=== PATIENT | male | born 1965 | race Caucasian/White ===

== ENCOUNTER 2017-06-21 16:05 | Inpatient (IN) | END 2017-09-08 17:37 | disposition home health service (06) | DRG 472 ==

== ENCOUNTER 2018-09-17 16:30 | Inpatient (IN) | payer OTHER ==
[~2018-09-17] VITALS: Ht 182.9 cm; Wt 102.4 kg
[~2018-09-17 16:30] MED LIST: FER325 PO; FURO-110 PO; HYDR-3601 PO; SPIR50TA PO; Vancomycin Oral Syringe PO
[2018-09-17] MEDS ORDERED: ONDANSETRON 4 MG INJ IV PRN (19:30)
[2018-09-17] MEDS ORDERED: ALBUTEROL 0.083% (NEB) 2.5 MG/3 ML AMP NEB PRN (19:30)
[2018-09-17] MEDS ORDERED: HYDROCODONE/APAP (5/325) TAB PO PRN (19:30)
[2018-09-17] MEDS ORDERED: MAGNESIUM HYDROXIDE 30ML CUP PO PRN (19:30)
[2018-09-17] MEDS ORDERED: NACL 0.9% 3 ML SYG IV SCH (19:30)
[2018-09-17] MEDS ORDERED: DOCUSATE SODIUM 100 MG CAP PO PRN (19:30)
[2018-09-17 19:38] VITALS: BP 138/88; PULSE 71; RESP 18
[2018-09-17] MEDS: ALBUTEROL 0.083% (NEB) 2.5 MG/3 ML AMP NEB SCH (20:00)
[2018-09-17 20:05] VITALS: Ht 182.9 cm; Wt 102.4 kg
[2018-09-17] MEDS ORDERED: morphine 2 MG INJ IV STA (20:41)
[2018-09-17] MEDS: METHYLPREDNISOLONE 40 MG INJ IV SCH (22:00)
[2018-09-17] MEDS: FERROUS SULFATE (EC) 325 MG TAB PO SCH (22:00)
[2018-09-17] MEDS: AZITHROMYCIN 500MG/NS (PMX) 250 ML IV SCH (22:01)
--- NOTE | 2018-09-17 23:03 | HP ---
Date/Time of Note Date/Time of Note DATE: 09/17/18 TIME: 23:03 Assessment/Plan VTE Prophylaxis SCD applied (from Ns): Yes Pharmacological prophylaxis: NA/contraindicated Pharm contraindication: low risk/ambulating Assessment/Plan Hospital Course This is a 53-year-old male [facility] for: #1 severe sepsis: Secondary to pneumonia. Patient's initial lactate transfer facility was 3.1. We will repeat a lactate at the current time. Ceftriaxone and azithromycin. Will trend lactate levels. Will check with the transfer facility regarding culture results. #2 community-acquired pneumonia: Ceftriaxone and azithromycin, await culture results #3 history of cervical myelopathy S/p Posterior Cervical Decompression and Fusion (PCDF) C3-[address] Smith, neurosurgery on 08/11. Pain management the current time with patient's Roxicodone and Flexeril #4 iron deficiency anemia: Check CBC, monitor closely #5 liver cirrhosis with hepatitis C.: Resume Lasix and spironolactone. follow up outpatient GI for further work up and treatment of hep c #6 depression: Continue sertraline #7 left shoulder Posttraumatic impingement syndrome: Continue pain management with Roxicodone #8 obesity: We will check hemoglobin A 1C, lipid panel, TSH #9 DVT GI prophylaxis: SCDs, no GI prophylaxis indicated Further treatment strategy will be implemented as per the clinical course Result Diagram: 09/17/18203609/17/182036 Results 24hrs Laboratory Tests Test 09/17/18 20:37 White Blood Count 15.1 #H Red Blood Count 3.93 #L Hemoglobin 11.1 L Hematocrit 34.3 L Mean Corpuscular Volume 87.3 Mean Corpuscular Hemoglobin 28.2 L Mean Corpuscular Hemoglobin Concent 32.4 Red Cell Distribution Width 16.8 #H Platelet Count 192 # Mean Platelet Volume 10.1 Immature Granulocytes % 0.500 H Neutrophils % 84.7 H Lymphocytes % 8.3 L Monocytes % 6.4 Eosinophils % 0.0 Basophils % 0.1 Nucleated Red Blood Cells % 0.0 Immature Granulocytes # 0.070 H Neutrophils # 12.8 H Lymphocytes # 1.3 Monocytes # 1.0 H Eosinophils # 0.0 Basophils # 0.0 Nucleated Red Blood Cells # 0.0 Sodium Level 140 Potassium Level 4.8 Chloride Level 109 Carbon Dioxide Level 21 Anion Gap 10 Blood Urea Nitrogen 16 Creatinine 0.86 Est Glomerular Filtrat Rate mL/min > 60 Glucose Level 160 Calcium Level 8.7 Magnesium Level 1.8 Total Bilirubin 0.0 L Direct Bilirubin 0.00 Indirect Bilirubin 0.0 Aspartate Amino Transf (AST/SGOT) 47 H Alanine Aminotransferase (ALT/SGPT) 26 Alkaline Phosphatase 132 H Total Protein 7.2 Albumin 3.2 L Globulin 4.00 H Albumin/Globulin Ratio 0.80 HPI/ROS Admit Date/Time Admit Date/Time Sep 17, 2018 at 18:40 Hx of Present Illness Chief complaint shortness of breath This is a 53-year-old male who presented to the ER at [facility] with complaints of cough times 7 days. There he reported that his cough is associated with yellowish/greenish sputum production. He also reported having a fever chills and left-sided chest pain. He was found to have a temperature of 101 and a elevated lactate of 3.1. Chest x-ray was consistent with a left-sided pneumonia. Patient also had been reporting history of asthma and has been wheezing. Vitals on presentation at the transfer facility showed temperature 100.9 BP 127/71/pulse 125/respirations 23/SPO2 96% on room air Pertinent laboratory findings please see transfer Dr. barrios for full details: CBC White blood cell 5.2 hemoglobin 11.8/hematocrit 36.1/platelets 155 Sodium 129 potassium 3.0 chloride 96 CO2 20 BUN 8 creatinine 1.04 ALT 23 AST 56 next Troponin less than 0.02 Chest x-ray: Left-sided infiltrate Allergies: Opioids, opium, acetaminophen, latex ROS Const: As per HPI Eyes : No pain discharge or redness or change in visual acuity ENT: No pain, sore throat, congestion, congestion, dysphagia or discharge Respiratory: As per HPI Cardiovascular: No chest pain, palpitation, PND, or edema GI : no change in appetite, abdominal pain, nausea, vomiting, diarrhea, constipation, or change in the color his stool Genitourinary: No dysuria, hematuria, flank pain , discharge or CVA tenderness Musculoskeletal: No joint pain, back pain, neck pain, restricted range of motion in neck or joints Skin: No rash, bruising or hives Neuro: No headache, dizziness, syncope, seizure, focal weakness Endocrine: No polyuria, polydipsia, temperature intolerance Psych: No hallucination, depression, anxiety or suicidal ideation PMH/Family/Social Past Medical History Cervical myelopathy S/p Posterior Cervical Decompression and Fusion (PCDF) C3-[address] Smith, neurosurgery on 08/11. Right BKA Iron deficiency anemia Liver cirrhosis with hepatitis C. Depression. Left shoulder Posttraumatic impingement syndrome Psychiatric disorder. Anemia. Medications Current Medications Ferrous Sulfate (Ferrous Sulfate (Ec)) 325 mg BID PO Last administered on 09/17/18at 22:00; Admin Dose 325 MG; Start 09/17/18 at 21:00 Furosemide (Lasix) 20 mg DAILY PO ; Start 09/18/18 at 09:00 Spironolactone (Aldactone) 50 mg DAILY PO ; Start 09/18/18 at 09:00 IV Flush (NS 3 ml) 3 ml PER PROTOCOL IV ; Start 09/17/18 at 19:30 Ondansetron HCl (Zofran Inj) 4 mg Q6H PRN IV NAUSEA/VOMITING; Start 09/17/18 at 19:30 Docusate Sodium (Colace) 100 mg Q12H PRN PO .CONSTIPATION; Start 09/17/18 at 19:30 Magnesium Hydroxide (Milk Of Mag) 30 ml DAILY PRN PO .CONSTIPATION; Start 09/17/18 at 19:30 Pantoprazole (Protonix Tab) 40 mg DAILY@06 PO ; Start 09/18/18 at 06:00 Enoxaparin Sodium (Lovenox) 40 mg DAILY SC ; Start 09/18/18 at 09:00 Ceftriaxone Sodium 50 ml @ 100 mls/hr Q24H IVPB ; Start 09/17/18 at 19:30 Azithromycin 250 ml @ 250 mls/hr Q24H IV Last administered on 09/17/18at 22:01; Admin Dose 250 MLS/HR; Start 09/17/18 at 21:00 Albuterol (Proventil 0.083% (Neb)) 2.5 mg Q6HWA RESP THERAPY NEB ; Start 09/17/18 at 20:00 Albuterol (Proventil 0.083% (Neb)) 2.5 mg Q2H RESP THERAPY PRN NEB SHORTNESS OF BREATH; Start 09/17/18 at 19:30 Methylprednisolone Sodium Succinate (Solu-Medrol) 40 mg Q8 IV Last administered on 09/17/18at 22:00; Admin Dose 40 MG; Start 09/17/18 at 22:00 Coded Allergies: acetaminophen (Verified Allergy, Intermediate, 06/20/17) latex (Verified Allergy, Intermediate, 06/20/17) Opium (Verified Allergy, Unknown, 01/10/10) Uncoded Allergies: OPIATES (Allergy, Intermediate, RASH; TAKES MS CONTIN AT HOME, 06/20/17) (PER RN) Past Surgical History S/p Posterior Cervical Decompression and Fusion (PCDF) C3-[address] Smith, neurosurgery on 08/11/2016, right bka Past Surgical Hx: other Family History Significant Family History: no pertinent family hx Social History Smoking Status: Former smoker Exam/Review of Systems Vital Signs Vitals Vital Signs Date Temp Pulse Resp B/P (MAP) Pulse Ox O2 O2 Flow FiO2 Time Delivery Rate 09/17/18 98.7 71 18 138/88 98 19:38 (105) Exam Exam General: Patient is currently lying in bed he does not appear to be in any acute distress, he is watching TV HEENT: Atraumatic, normocephalic. The pupils are equal, round and reactive. Extraocular motor are intact Neck: Supple with full range of motion. No rigidity or meningismus Chest: Nontender Lungs: Coarse breath sounds bilaterally, nonlabored breathing Heart: Normal S1-S2, Regular rhythm and rate. No murmur, S3, or S4 Abdomen: Soft , nontender, nondistended , bowel sounds are present. No guarding no rebound tenderness , No masses or organomegaly. No costovertebral temporal angle mass Extremities: Right BKA Neurologic: Normal mental status, speech normal, cranial nerves II through XII are intact, motor and sensory are intact, Skin: Posterior cervical surgical scar CA RODRIGUEZ Sep 17, 2018 23:03
[2018-09-17] MEDS ORDERED: MAGNESIUM SULFATE 1 GM/D5W 100 ML IVPB ONE (23:30)
[2018-09-17] MEDS: CEFTRIAXONE 1 GM/50 ML (PMX) 50 ML IVPB SCH (23:58)
[2018-09-18] MEDS: oxyCODONE 5 MG TAB PO SCH ×2 (00:44→09:39)
[2018-09-18] MEDS: CYCLOBENZAPRINE 10 MG TAB PO SCH ×3 (00:44→21:12)
[2018-09-18 01:10] VITALS: BP 152/89; PULSE 72; RESP 18
[2018-09-18] MEDS ORDERED: SERT25TA83 PO (03:42)
[2018-09-18] MEDS ORDERED: NAPR-688 PO (03:42)
[2018-09-18] MEDS ORDERED: FOLI-49 PO (03:42)
[2018-09-18] MEDS ORDERED: METO-429 PO (03:42)
[2018-09-18] MEDS: PANTOPRAZOLE (EC) 40 MG TAB PO SCH (05:58)
[2018-09-18] MEDS: METHYLPREDNISOLONE 40 MG INJ IV SCH ×3 (05:58→21:12)
[2018-09-18 07:25] VITALS: BP 159/93; PULSE 70; RESP 16
[2018-09-18] MEDS: ALBUTEROL 0.083% (NEB) 2.5 MG/3 ML AMP NEB SCH ×3 (07:32→21:09)
[2018-09-18] MEDS: METOPROLOL 50 MG TAB PO SCH ×2 (09:37→21:13)
[2018-09-18] MEDS: FOLIC ACID 1 MG TAB PO SCH (09:37)
[2018-09-18] MEDS: SPIRONOLACTONE 50 MG TAB PO SCH (09:38)
[2018-09-18] MEDS: FUROSEMIDE 20 MG TAB PO SCH (09:38)
[2018-09-18] MEDS: FERROUS SULFATE (EC) 325 MG TAB PO SCH ×2 (09:38→21:13)
[2018-09-18] MEDS: ENOXAPARIN 40 MG/0.4 ML SYG SC SCH (09:44)
[2018-09-18] MEDS: SERTRALINE 50 MG TAB PO SCH (10:07)
--- NOTE | 2018-09-18 10:39 | PN ---
Date/Time of Note Date/Time of Note DATE: 09/18/18 TIME: 10:26 Assessment/Plan VTE Prophylaxis Risk score (from Nsg)>0 risk: 5 SCD applied (from Nsg): Yes Pharmacological prophylaxis: LMWH Lines/Catheters IV Catheter Type (from Nrsg): Peripheral IV Assessment/Plan Hospital Course S: feels better, having some pain in R side from coughing O: General: A&O x3, answering questions appropriately HEENT: NC/ AT. PERRL. EOM intact Neck: supple CVS: S1, S2, RRR. no murmurs. no pain on chest wall palpation Lungs: wheezing R >>L, mildly diminished, still requiring 2L nc Abd: soft, nontender, +BS Ext: R BKA, no edema skin: no rashes assessment and plan: Sepsis secondary to left-sided pneumonia Chronic pain History of cervical myelopathy status post surgical decompression and fusion July 2018 Chronic hepatitis C with liver cirrhosis, status untreated Chronic debility and wheelchair bound Chronic iron deficiency History of C. difficile colitis Chronic iron deficiency anemia Low TSH in the setting of sepsis Plan: 1. Continue current antibiotics 2. Wean off oxygen and continue breathing treatments 3. Patient has in-home support services and has caregiver taking care of him an d so we will plan for possible discharge tomorrow to complete antibiotic therapy at home, once weaned off o2 4. Patient recommended to follow-up with GI outpatient for hepatitis C evaluation and possible treatment Prophylaxis: Lovenox Result Diagram: 09/18/18 0451 09/18/18 0451 Results 24hrs Laboratory Tests Test 09/17/18 20:37 09/18/18 04:51 09/18/18 09:18 White Blood Count 15.1 #H 15.5 H Red Blood Count 3.93 #L 3.67 L Hemoglobin 11.1 L 10.5 L Hematocrit 34.3 L 32.2 L Mean Corpuscular Volume 87.3 87.7 Mean Corpuscular Hemoglobin 28.2 L 28.6 L Mean Corpuscular Hemoglobin Concent 32.4 32.6 Red Cell Distribution Width 16.8 #H 16.9 H Platelet Count 192 # 179 Mean Platelet Volume 10.1 10.6 H Immature Granulocytes % 0.500 H 0.400 Neutrophils % 84.7 H 86.4 H Lymphocytes % 8.3 L 8.7 L Monocytes % 6.4 4.4 Eosinophils % 0.0 0.0 Basophils % 0.1 0.1 Nucleated Red Blood Cells % 0.0 0.0 Immature Granulocytes # 0.070 H 0.060 H Neutrophils # 12.8 H 13.4 H Lymphocytes # 1.3 1.4 Monocytes # 1.0 H 0.7 Eosinophils # 0.0 0.0 Basophils # 0.0 0.0 Nucleated Red Blood Cells # 0.0 0.0 Sodium Level 140 139 Potassium Level 4.8 3.9 Chloride Level 109 109 Carbon Dioxide Level 21 20 L Anion Gap 10 10 Blood Urea Nitrogen 16 18 Creatinine 0.86 0.76 Est Glomerular Filtrat Rate mL/min > 60 > 60 Glucose Level 160 154 Calcium Level 8.7 8.3 L Magnesium Level 1.8 2.1 Total Bilirubin 0.0 L 0.1 L Direct Bilirubin 0.00 0.00 Indirect Bilirubin 0.0 0.1 Aspartate Amino Transf (AST/SGOT) 47 H 42 Alanine Aminotransferase (ALT/SGPT) 26 22 Alkaline Phosphatase 132 H 114 Total Protein 7.2 6.5 Albumin 3.2 L 2.9 L Globulin 4.00 H 3.60 H Albumin/Globulin Ratio 0.80 0.80 Triglycerides Level 62 Cholesterol Level 119 LDL Cholesterol, Calculated 66 HDL Cholesterol 41 Cholesterol/HDL Ratio 2.9 Thyroid Stimulating Hormone (TSH) 0.161 L Lactic Acid Level 1.2 Exam/Review of Systems Exam Vitals Vital Signs Date Temp Pulse Resp B/P (MAP) Pulse Ox O2 O2 Flow FiO2 Time Delivery Rate 09/18/18 2.0 07:35 09/18/18 72 18 96 Nasal 07:34 Cannula 09/18/18 98.1 159/93 07:25 (115) Intake and Output 09/17/18 09/17/18 09/18/18 1515:00 23:00 07:00 IntakeIntake Total 900 ml BalanceBalance 900 ml Results Results 24hrs Laboratory Tests Test 09/17/18 20:37 09/18/18 04:51 09/18/18 09:18 White Blood Count 15.1 #H 15.5 H Red Blood Count 3.93 #L 3.67 L Hemoglobin 11.1 L 10.5 L Hematocrit 34.3 L 32.2 L Mean Corpuscular Volume 87.3 87.7 Mean Corpuscular Hemoglobin 28.2 L 28.6 L Mean Corpuscular Hemoglobin Concent 32.4 32.6 Red Cell Distribution Width 16.8 #H 16.9 H Platelet Count 192 # 179 Mean Platelet Volume 10.1 10.6 H Immature Granulocytes % 0.500 H 0.400 Neutrophils % 84.7 H 86.4 H Lymphocytes % 8.3 L 8.7 L Monocytes % 6.4 4.4 Eosinophils % 0.0 0.0 Basophils % 0.1 0.1 Nucleated Red Blood Cells % 0.0 0.0 Immature Granulocytes # 0.070 H 0.060 H Neutrophils # 12.8 H 13.4 H Lymphocytes # 1.3 1.4 Monocytes # 1.0 H 0.7 Eosinophils # 0.0 0.0 Basophils # 0.0 0.0 Nucleated Red Blood Cells # 0.0 0.0 Sodium Level 140 139 Potassium Level 4.8 3.9 Chloride Level 109 109 Carbon Dioxide Level 21 20 L Anion Gap 10 10 Blood Urea Nitrogen 16 18 Creatinine 0.86 0.76 Est Glomerular Filtrat Rate mL/min > 60 > 60 Glucose Level 160 154 Calcium Level 8.7 8.3 L Magnesium Level 1.8 2.1 Total Bilirubin 0.0 L 0.1 L Direct Bilirubin 0.00 0.00 Indirect Bilirubin 0.0 0.1 Aspartate Amino Transf (AST/SGOT) 47 H 42 Alanine Aminotransferase (ALT/SGPT) 26 22 Alkaline Phosphatase 132 H 114 Total Protein 7.2 6.5 Albumin 3.2 L 2.9 L Globulin 4.00 H 3.60 H Albumin/Globulin Ratio 0.80 0.80 Triglycerides Level 62 Cholesterol Level 119 LDL Cholesterol, Calculated 66 HDL Cholesterol 41 Cholesterol/HDL Ratio 2.9 Thyroid Stimulating Hormone (TSH) 0.161 L Lactic Acid Level 1.2 Medications Medication Current Medications Ferrous Sulfate (Ferrous Sulfate (Ec)) 325 mg BID PO Last administered on 09/18/18at 09:38; Admin Dose 325 MG; Start 09/17/18 at 21:00 Furosemide (Lasix) 20 mg DAILY PO Last administered on 09/18/18at 09:38; Admin Dose 20 MG; Start 09/18/18 at 09:00 Spironolactone (Aldactone) 50 mg DAILY PO Last administered on 09/18/18 09:38; Admin Dose 50 MG; Start 09/18/18 at 09:00 IV Flush (NS 3 ml) 3 ml PER PROTOCOL IV ; Start 09/17/18 at 19:30 Ondansetron HCl (Zofran Inj) 4 mg Q6H PRN IV NAUSEA/VOMITING; Start 09/17/18 at 19:30 Docusate Sodium (Colace) 100 mg Q12H PRN PO .CONSTIPATION; Start 09/17/18 at 19:30 Magnesium Hydroxide (Milk Of Mag) 30 ml DAILY PRN PO .CONSTIPATION; Start 09/17/18 at 19:30 Pantoprazole (Protonix Tab) 40 mg DAILY@06 PO Last administered on 09/18/18 05:58; Admin Dose 40 MG; Start 09/18/18 at 06:00 Enoxaparin Sodium (Lovenox) 40 mg DAILY SC Last administered on 09/18/18 09:44; Admin Dose 40 MG; Start 09/18/18 at 09:00 Ceftriaxone Sodium 50 ml @ 100 mls/hr Q24H IVPB Last administered on 09/17/18 23:58; Admin Dose 100 MLS/HR; Start 09/17/18 at 19:30 Azithromycin 250 ml @ 250 mls/hr Q24H IV Last administered on 09/17/18 22:01; Admin Dose 250 MLS/HR; Start 09/17/18 at 21:00 Albuterol (Proventil 0.083% (Neb)) 2.5 mg Q6HWA RESP THERAPY NEB Last administered on 09/18/18 07:32; Admin Dose 2.5 MG; Start 09/17/18 at 20:00 Albuterol (Proventil 0.083% (Neb)) 2.5 mg Q2H RESP THERAPY PRN NEB SHORTNESS OF BREATH; Start 09/17/18 at 19:30 Methylprednisolone Sodium Succinate (Solu-Medrol) 40 mg Q8 IV Last administered on 09/18/18 05:58; Admin Dose 40 MG; Start 09/17/18 at 22:00 Oxycodone HCl (Roxicodone) 10 mg BID PO Last administered on 09/18/18 09:39; Admin Dose 10 MG; Start 09/18/18 at 00:00 Cyclobenzaprine HCl (Flexeril) 10 mg BID PO Last administered on 09/18/18 0 9:37; Admin Dose 10 MG; Start 09/18/18 at 00:00 Folic Acid (Folic Acid) 1 mg DAILY PO Last administered on 09/18/18 09:37; Admin Dose 1 MG; Start 09/18/18 at 09:00 Metoprolol Tartrate (Lopressor) 50 mg BID PO Last administered on 09/18/18 09:37; Admin Dose 50 MG; Start 09/18/18 at 09:00 Sertraline HCl (Zoloft) 25 mg DAILY PO Last administered on 09/18/18at 10:07; Admin Dose 25 MG; Start 09/18/18 at 09:00 AYUSH BENTLEY Sep 18, 2018 10:36
[2018-09-18 14:16] VITALS: BP 123/70; PULSE 59; RESP 16
[2018-09-18] MEDS: oxyCODONE 5 MG TAB PO PRN (17:46)
[2018-09-18 19:32] VITALS: BP 115/81; PULSE 63; RESP 18
[2018-09-18] MEDS: DOCUSATE SODIUM 100 MG CAP PO SCH (19:48)
[2018-09-18] MEDS: CEFTRIAXONE 1 GM/50 ML (PMX) 50 ML IVPB SCH (19:49)
[2018-09-18] MEDS: AZITHROMYCIN 500MG/NS (PMX) 250 ML IV SCH (21:13)
[2018-09-19 01:22] VITALS: BP 126/74; PULSE 63; RESP 18
[2018-09-19] MEDS: oxyCODONE 5 MG TAB PO PRN ×3 (01:41→18:23)
[2018-09-19] MEDS: PANTOPRAZOLE (EC) 40 MG TAB PO SCH (06:06)
[2018-09-19] MEDS: METHYLPREDNISOLONE 40 MG INJ IV SCH ×2 (06:06→14:56)
--- NOTE | 2018-09-19 06:31 | DS ---
Date/Time of Note Date/Time of Note DATE: 09/19/18 TIME: 06:30 Discharge Summary Admission/Discharge Info Admit Date/Time Sep 17, 2018 at 18:40 Discharge Date/Time Discharge Diagnosis Sepsis secondary to left-sided pneumonia ROXY R sided pain from coughing Chronic pain History of cervical myelopathy status post surgical decompression and fusion July 2018 Chronic hepatitis C with liver cirrhosis, status untreated Chronic debility and wheelchair bound Chronic iron deficiency History of C. difficile colitis Chronic iron deficiency anemia Low TSH in the setting of sepsis Scrotal numbness Home Meds Active Scripts [Vancomycin Oral Syringe] 50 MG/ML SOLN No Conflict Check, 250 MG PO Q6 for 20 Days Prov:MAGALI DARBY 09/06/17 Hydrocodone Bit-Acetaminophen (Hydrocodone Bit-APAP) 5-325MG Tablet, 1 TAB PO Q4H PRN for PAIN, #30 TAB Prov:MAGALI DARBY 09/06/17 Ferrous Sulfate* (Ferrous Sulfate*) 325 Mg Tabec, 325 MG PO BID for 30 Days, TAB Prov:MAGALI DARBY 09/06/17 Spironolactone* (Aldactone*) 50 Mg Tablet, 50 MG PO DAILY, #30 TAB HOLD IF SBP BELOW 110 OR HR<60 Prov:MAGALI DARBY 09/06/17 Furosemide* (Lasix*) 20 Mg Tablet, 20 MG PO DAILY for 30 Days, TAB Prov:MAGALI DARBY 09/06/17 Reported Medications Folic Acid* (Folic Acid*) 1 Mg Tablet, 1 MG PO DAILY, TAB 09/18/18 Sertraline Hcl* (Sertraline Hcl*) 25 Mg Tablet, 25 MG PO DAILY, #30 TAB 09/18/18 Naproxen* (Naproxen*) 500 Mg Tablet, 500 MG PO BID PRN for INFLAMATION, TAB 09/18/18 Metoprolol Tartrate* (Lopressor*) 50 Mg Tab, 50 MG PO BID, #60 TAB 09/18/18 Follow-up Plan 1. Followup with your primary doctor within the next 1-2 weeks. 2. If you don't have one please let someone know, we can give you resources that may help you pick one. 3. Review your medication list with your nurse before leaving and if you need new prescriptions please let your nurse know. 4. I may have made changes to your home medications or given you new prescriptions, please let your primary doctor know as well. 5. Stay compliant with your medications and report any side effects to your PCP or pharmacist. 6. Return to the ER if you have any concerns and cannot reach your doctors or call your insurance company, they usually have a nurse that can help you. . Primary Care Provider Turner Wellington MD Time spent on discharge: > 30 minutes Pending Labs Laboratory Tests Test 09/18/18 09:18 09/18/18 09:45 09/19/18 05:01 Lactic Acid Level 1.2 mmol/L (0.5-2.0) Urine Color YELLOW (YELLOW) Urine Clarity CLEAR (CLEAR) Urine pH 6.0 (5.0-9.0) Urine Specific 1.015 (1.003-1.030 [place] ) Urine Ketones NEGATIVE mg/dL (NEGATIVE) Urine Nitrite NEGATIVE mg/dL (NEGATIVE) Urine Bilirubin NEGATIVE mg/dL (NEGATIVE) Urine Urobilinogen NEGATIVE mg/dL (NEGATIVE) Urine Leukocyte NEGATIVE Jax/ul Esterase Urine Microscopic 1 /HPF (0-5) RBC Urine Microscopic 0 /HPF (0-5) WBC Urine Hemoglobin 1+ mg/dL (NEGATIVE) Urine Glucose NEGATIVE mg/dL (NEGATIVE) Urine Total NEGATIVE Protein mg/dl (NEGATIVE) White Blood Count 12.4 10^3/ul (4.8-10.8) Red Blood Count 3.80 10^6/ul (4.70-6.10 ) Hemoglobin 10.8 g/dl (14.0-18.0) Hematocrit 33.3 % (42.0-52.0) Mean Corpuscular 87.6 Volume fl (82.0-101.0) Mean Corpuscular 28.4 Hemoglobin pg (29.0-33.0) Mean Corpuscular 32.4 Hemoglobin Concent g/dl (32.0-37.0) Red Cell 17.0 % (11.5-14.5) Distribution Width Platelet Count 191 10^3/UL (140-415) Mean Platelet 10.8 fl (7.4-10.4) Volume Immature 0.500 Granulocytes % % (0.001-0.429) Neutrophils % 83.8 % (39.0-77.0) Lymphocytes % 9.3 % (15.0-51.0) Monocytes % 6.3 % (0.0-11.0) Eosinophils % 0.0 % (0.0-7.0) Basophils % 0.1 % (0.0-2.0) Nucleated Red Blood 0.0 Cells % /100WBC (0.0-0.0) Immature 0.060 Granulocytes # 10^3/ul (0.0-0.031 ) Neutrophils # 10.4 10^3/ul (1.6-7.5) Lymphocytes # 1.2 10^3/ul (0.8-2.9) Monocytes # 0.8 10^3/ul (0.3-0.9) Eosinophils # 0.0 10^3/ul (0.0-0.5) Basophils # 0.0 10^3/ul (0.0-0.1) Nucleated Red Blood 0.0 Cells # 10^3/ul (0.0-0.0) Sodium Level 138 mmol/L (135-144) Potassium Level 3.8 mmol/L (3.5-5.1) Chloride Level 109 mmol/L (97-110) Carbon Dioxide 20 mmol/L (21-31) Level Anion Gap 9 (5-13) Blood Urea 22 mg/dl (7-20) Nitrogen Creatinine 0.85 mg/dl (0.61-1.24) Est Glomerular > 60 mL/min (>60) Filtrat Rate mL/min Glucose Level 213 mg/dl (70-220) Calcium Level 8.2 mg/dl (8.4-10.2) Phosphorus Level 3.4 mg/dl (2.5-4.9) Magnesium Level 2.0 mg/dl (1.7-2.5) AYUSH BENTLEY Sep 19, 2018 06:31
[2018-09-19 07:35] VITALS: BP 145/86; PULSE 56; RESP 18
[2018-09-19] MEDS: ALBUTEROL 0.083% (NEB) 2.5 MG/3 ML AMP NEB SCH ×2 (08:00→13:40)
[2018-09-19] MEDS: SPIRONOLACTONE 50 MG TAB PO SCH (08:40)
[2018-09-19] MEDS: CYCLOBENZAPRINE 10 MG TAB PO SCH (08:40)
[2018-09-19] MEDS: FUROSEMIDE 20 MG TAB PO SCH (08:41)
[2018-09-19] MEDS: SERTRALINE 50 MG TAB PO SCH (08:41)
[2018-09-19] MEDS: DOCUSATE SODIUM 100 MG CAP PO SCH (08:41)
[2018-09-19] MEDS: FOLIC ACID 1 MG TAB PO SCH (08:42)
[2018-09-19] MEDS: FERROUS SULFATE (EC) 325 MG TAB PO SCH (08:42)
[2018-09-19] MEDS: METOPROLOL 50 MG TAB PO SCH (08:42)
[2018-09-19] MEDS: ENOXAPARIN 40 MG/0.4 ML SYG SC SCH (08:44)
[2018-09-19 13:35] VITALS: BP 125/81; PULSE 61; RESP 18
[2018-09-19] MEDS ORDERED: AMOX1TAB10 PO (13:53)
[2018-09-19] MEDS ORDERED: LACTINEX PO (13:53)
[2018-09-19] MEDS ORDERED: DOCU-144 PO (13:53)
[2018-09-19] MEDS ORDERED: ALBU2.5V3 NEB (13:53)
[2018-09-19] MEDS ORDERED: MED4DP PO (13:53)
[2018-09-19] MEDS ORDERED: NEBU-27 MC (13:54)
[2018-09-19] MEDS ORDERED: DICL1KIT14 TP (13:58)
[2018-09-19] MEDS ORDERED: DICLOFENAC SODIUM 1% GEL 100 GM TUBE TP SCH (15:00)
[2018-09-19] MEDS ORDERED: LIDOCAINE 5% PATCH TD SCH (15:00)
--- NOTE | 2018-09-19 15:01 | PDOCDIS ---
Discharge Instructions DIAGNOSIS Discharge Diagnosis Sepsis secondary to left-sided pneumonia CONDITION [id number] Patient Condition: [id number] Stable HOME CARE INSTRUCTIONS: [id number] Diet Instructions: [id number] Low Fat /Cholesterol ACTIVITY: [id number] Activity Restrictions: [id number] Slowly Increase Activity Rest between Activity FOLLOW UP/APPOINTMENTS Follow-up Plan 1. Followup with your primary doctor within the next 1-2 weeks. 2. If you don't have one please let someone know, we can give you resources that may help you pick one. 3. Review your medication list with your nurse before leaving and if you need new prescriptions please let your nurse know. 4. I may have made changes to your home medications or given you new prescriptions, please let your primary doctor know as well. 5. Stay compliant with your medications and report any side effects to your PCP or pharmacist. 6. Return to the ER if you have any concerns and cannot reach your doctors or call your insurance company, they usually have a nurse that can help you. . Followup with Urology Dr Blankenship for your scrotal concerns Name, Degree: Lionel Douglas MD Specialty: Urology Comments: Office Address: [id number] [place] [address] Office Office . AYUSH BENTLEY Sep 19, 2018 15:01
[2018-09-19 16:05] VITALS: BP 122/79; PULSE 64; RESP 20
[2018-09-19 19:25] VITALS: BP 153/80; PULSE 61; RESP 18
== END 2018-09-19 19:55 | disposition home health service (06) | DRG 871 ==
LOC: 2NE 18:40
PROVIDERS: ADMIT Internal Medicine; ATTEND Internal Medicine
DX: A41.9 Sepsis, unspecified organism (principal); J18.9 Pneumonia, unspecified organism; E87.1 Hypo-osmolality and hyponatremia; M50.022 Cervical disc disorder at C5-C6 level with myelopathy; K74.60 Unspecified cirrhosis of liver; B18.2 Chronic viral hepatitis C; E87.6 Hypokalemia; D50.9 Iron deficiency anemia, unspecified; F32.9 Major depressive disorder, single episode, unspecified; M75.42 Impingement syndrome of left shoulder; Y95 Nosocomial condition; E66.9 Obesity, unspecified; Z68.30 Body mass index [BMI] 30.0-30.9, adult; Z98.1 Arthrodesis status; Z89.511 Acquired absence of right leg below knee
CPT/HCPCS: 71045; 80048; 80053; 80061; 81001; 83036; 83605; 83735; 84100; 84439; 84443; 85025; 94640; 94664; J0456; J0696; J1650; J2270; J2920; J3475

== ENCOUNTER 2018-09-23 07:24 | Inpatient (IN) | payer OTHER ==
[2018-09-23] VITALS (17 sets, daily range): BP systolic 125–170; BP diastolic 75–100; PULSE 60–92; RESP 9–34; Ht 182.9 cm; Wt 93.0 kg
[~2018-09-23] VITALS: Ht 182.9 cm; Wt 93.0 kg
[~2018-09-23 07:24] MED LIST changes: +ALBU2.5V3 NEB; +AMOX1TAB10 PO; +DICL1KIT14 TP; +DOCU-144 PO; +FOLI-49 PO; +LACTINEX PO; +MED4DP PO; +METO-429 PO; +NAPR-688 PO; +NEBU-27 MC; +SERT25TA83 PO; -Vancomycin Oral Syringe PO
[2018-09-23] MEDS ORDERED: HYDROmorphONE 2 MG/ML SYG IM STA (07:48)
[2018-09-23] MEDS ORDERED: ONDANSETRON (ODT) 4 MG TAB ODT STA (07:48)
[2018-09-23] MEDS ORDERED: OXYC-481 PO (10:49)
[2018-09-23] MEDS ORDERED: CYCL10TA7 PO (10:50)
[2018-09-23] MEDS ORDERED: ONDANSETRON 4 MG INJ IV STA (10:54)
[2018-09-23] MEDS ORDERED: HYDROmorphONE 1 MG/ML SYG IV STA (10:54)
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
[2018-09-23] MEDS ORDERED: METHYLPREDNISOLONE 125 MG INJ IV ONE (12:00)
[2018-09-23] MEDS ORDERED: HYDROmorphONE 0.5 MG/0.5 ML SYG IV PRN ×3 (12:00→16:00)
[2018-09-23] MEDS ORDERED: ONDANSETRON 4 MG INJ IV PRN ×2 (12:00→16:30)
[2018-09-23] MEDS ORDERED: NACL 0.9% 3 ML SYG IV SCH (12:00)
--- NOTE | 2018-09-23 12:05 | CONS ---
Assessment/Plan Assessment/Plan Hospital Course (Demo Recall) 53-year-old male with right olecranon fracture. His history of hepatitis C and right lower extremity BKA. The fracture suspicious for either an acute on chronic fracture or an old fracture with fibrous nonunion that then displaced. He did not have a fall today he was only transferring from his wheelchair to the bed which be unusual to cause a large transverse olecranon fracture. This may also explain the patient's ability to extend his elbow almost fully although with pain. Articular surface appears well aligned and there is distraction along the dorsal surface. A CT scan will be helpful to further evaluate this fracture given the suspicion of chronicity. Plan: N.p.o. Stat CT scan right elbow Plan for OR today for ORIF Medical optimization Splint right upper extremity. Nonweightbearing. Consultation Date/Type/Reason Admit Date/Time Date of Consultation: Sep 23, 2018 Reason for Consultation Right elbow injury Date/Time of Note DATE: 09/23/18 TIME: 11:25 Hx of Present Illness 53-year-old male who presents emergency department with acute right elbow pain after transferring himself from his wheelchair to his bed. He felt a pop and had swelling. He has pain directly over the posterior elbow. States it feels like it is broken. The patient does have numbness and tingling but this is his baseline. He has history of severe cervical degenerative disc disease. No change in his numbness or tingling or hand function since his elbow injury this morning. Of note he did fall 2 weeks ago onto his elbow and had pain then as well. He was recently admitted to [facility] for pneumonia which she was just discharged for a few days ago. Patient has history of hepatitis C. He has history of BKA x1 year in the right lower extremity secondary to osteomyelitis after a lower extremity injury. He was previously homeless but has recently secured housing. Patient denies fever, chills, shortness of breath, chest pain, nausea/vomiting, constipation, diarrhea. Unchanged numbness and tingling is from cervical disc disease. Past Medical History Hepatitis C Asthma History of osteomyelitis Cervical and lumbar spine degenerative disc disease History of right BKA Depression anxiety Home Meds Active Scripts Amoxicillin/Potassium Clav (Amox-Clav 875-125 mg Tablet) 875-125 mg Tab, 1 TAB PO BID, #10 TAB Prov:AYUSH BENTLEY 09/19/18 Methylprednisolone* (Medrol* DOSE PACK) 4 Mg/Dose-Pack Tab.ds.pk, 4 MG PO . DIRECTED, #1 PACKET Prov:AYUSH BENTLEY. 09/19/18 Albuterol Sulfate* (Albuterol Sulfate* Neb) 0.083%-3 Ml Neb, 2.5 MG NEB Q6HWA RESP THERAPY for 2 Days, #8 DOSE Prov:AYUSH BENTLEY. 09/19/18 Reported Medications Cyclobenzaprine Hcl* (Cyclobenzaprine Hcl*) 10 Mg Tablet, 10 MG PO BID, #60 TAB 09/23/18 Oxycodone Hcl* (IR) (Roxicodone*) 5 Mg Tab, 5 MG PO DAILY PRN for PAIN, TAB 09/23/18 Sertraline Hcl* (Sertraline Hcl*) 25 Mg Tablet, 25 MG PO DAILY, #30 TAB 09/18/18 Naproxen* (Naproxen*) 500 Mg Tablet, 500 MG PO BID PRN for INFLAMATION, TAB 09/18/18 Discontinued Reported Medications Folic Acid* (Folic Acid*) 1 Mg Tablet, 1 MG PO DAILY, TAB 09/18/18 Metoprolol Tartrate* (Lopressor*) 50 Mg Tab, 50 MG PO BID, #60 TAB 09/18/18 Discontinued Scripts Diclofenac Sodium (Diclo Gel) 1 Each Kit, 1 EACH TP Q6H PRN for PAIN, #60 GM Prov:AYUSH BENTLEY. 09/19/18 Nebulizer (ALTERA NEBULIZER) 1 Each Each, EACH MC Q4H WHILE AWAKE, #1 Prov:AYUSH BENTLEY. 09/19/18 Lactobacillus Acidophilus* (Lactinex*) 1 Tab Chew, 1 TAB PO BID, #20 TAB Prov:AYUSH BENTLEY. 09/19/18 Docusate Sodium* (Colace*) 100 Mg Capsule, 100 MG PO Q12H, #60 CAP 1 Refill Prov:AYUSH BENTLEY. 09/19/18 Hydrocodone Bit-Acetaminophen (Hydrocodone Bit-APAP) 5-325MG Tablet, 1 TAB PO Q4H PRN for PAIN, #30 TAB Prov:MAGALI DARBY 09/06/17 Ferrous Sulfate* (Ferrous Sulfate*) 325 Mg Tabec, 325 MG PO BID for 30 Days, TAB Prov:MAGALI DARBY 09/06/17 Spironolactone* (Aldactone*) 50 Mg Tablet, 50 MG PO DAILY, #30 TAB HOLD IF SBP BELOW 110 OR HR<60 Prov:MAGALI DARBY 09/06/17 Furosemide* (Lasix*) 20 Mg Tablet, 20 MG PO DAILY for 30 Days, TAB Prov:MAGALI DARBY 09/06/17 [Vancomycin Oral Syringe] 50 MG/ML SOLN No Conflict Check, 250 MG PO Q6 for 20 Days Prov:MAGALI DARBY 09/06/17 Allergies: Coded Allergies: acetaminophen (Verified Allergy, Intermediate, 09/23/18) latex (Verified Allergy, Intermediate, 09/23/18) Opium (Verified Allergy, Unknown, 09/23/18) Uncoded Allergies: OPIATES (Allergy, Intermediate, RASH; TAKES MS CONTIN AT HOME, 06/20/17) (PER RN) Past Surgical History Right BKA for osteomyelitis after right lower extremity injury Cervical spine surgery Left lower extremity surgery Past Surgical Hx: other Family History Significant Family History: no pertinent family hx Social History Alcohol Use: occasionally (1-2 drinks a week) Smoking Status: Never smoker Drug Use: none Other Social History Previously homeless however he has recently obtained housing. Exam/Review of Systems Exam Vitals Vital Signs Date Temp Pulse Resp B/P (MAP) Pulse Ox O2 O2 Flow FiO2 Time Delivery Rate 09/23/18 142/99 11:05 (113) 09/23/18 100 96 Room Air 10:49 09/23/18 18 07:35 09/23/18 98.3 07:26 Exam General: Awake, alert, in no acute distress, pleasant and cooperative Heart: regular rhythm Lungs: breathing comfortably, no tachypnea or dyspnea MUSCULOSKELETAL: Right upper extremity: Skin is intact. There is swelling to the elbow. Tenderness to palpation over the olecranon. There is a palpable defect. Patient's extensor mechanism is partially intact. Patient is able to extend his elbow not against gravity. Global decreased sensation to light touch in a median, ulnar, radial, and axillary distribution. Motor is intact in a median, ulnar, radial, anterior interosseous, and posterior interosseous nerve distribution. Radial and ulnar artery are +2. Wrist extension and flexion are intact. Compartments are soft. Results Result Diagram: 09/23/18 0833 09/23/18 0833 Results 24hrs Laboratory Tests Test 09/23/18 08:33 White Blood Count 6.7 # Red Blood Count 4.65 #L Hemoglobin 13.0 #L Hematocrit 40.3 #L Mean Corpuscular Volume 86.7 Mean Corpuscular Hemoglobin 28.0 L Mean Corpuscular Hemoglobin Concent 32.3 Red Cell Distribution Width 16.3 H Platelet Count 253 # Mean Platelet Volume 10.8 H Immature Granulocytes % 1.500 H Neutrophils % 79.2 H Lymphocytes % 10.0 L Monocytes % 9.1 Eosinophils % 0.1 Basophils % 0.1 Nucleated Red Blood Cells % 0.0 Immature Granulocytes # 0.100 H Neutrophils # 5.3 Lymphocytes # 0.7 L Monocytes # 0.6 Eosinophils # 0.0 Basophils # 0.0 Nucleated Red Blood Cells # 0.0 Prothrombin Time 13.7 Prothrombin Time Ratio 1.1 INR International Normalized Ratio 1.04 Activated Partial Thromboplast Time 24.2 Sodium Level 141 Potassium Level 4.8 Chloride Level 109 Carbon Dioxide Level 21 Anion Gap 11 Blood Urea Nitrogen 17 Creatinine 0.90 Est Glomerular Filtrat Rate mL/min > 60 Glucose Level 186 Calcium Level 8.9 Total Bilirubin 0.2 Direct Bilirubin 0.00 Indirect Bilirubin 0.2 Aspartate Amino Transf (AST/SGOT) 45 Alanine Aminotransferase (ALT/SGPT) 48 Alkaline Phosphatase 228 H Troponin I < 0.012 Total Protein 7.9 Albumin 3.7 Globulin 4.20 H Albumin/Globulin Ratio 0.88 Imaging Imaging 3 views of the right elbow personally reviewed: There is a displaced transverse olecranon fracture. More than 50% of the joint is involved. The elbow joint is reduced. Post splinting films show improved alignment and decrease displacement of the fracture. LEATHA ANDRE MD Sep 23, 2018 11:36
[2018-09-23] MEDS: SOD CHLORIDE 0.9% 1,000 ML IV SCH ×2 (14:28→21:18)
[2018-09-23] MEDS: HYDROmorphONE 1 MG/ML SYG IV PRN ×2 (14:40→23:43)
--- NOTE | 2018-09-23 15:07 | ERD ---
ER Documentation Chief Complaint Chief Complaint RT ELBOW PAIN S/P TRANSFER FROM BED TO WHEELCHAIR HPI This is a very pleasant 53-year-old male with a history of chronic hepatitis and liver cirrhosis and never underwent treatment. The patient had a history of cervical myelopathy status post surgical decompression and fusion in July 2018. The patient has no history of diabetes or hypertension. He recently was discharged from the hospital after being treated for gram-negative pneumonia. The patient is wheelchair-bound as he has a right traumatic below the knee amputation that occurred the patient was in the 7 years prior to arrival. The patient indicates he had recently been homeless and was now placed into an apartment. He indicates that this morning prior to arrival he was transferring from his wheelchair onto the air mattress when he had lifted himself on a stretch outstretched right hand. He stated he heard a popping sensation severe pain of his right elbow. He medially grabbed the elbow and attempted to put the elbow back into position as he did feel that it was dislocated. He stated the pain was 10 out of 10 intensity. He phoned 911 and was brought to the emergency department to be further evaluated. He stated he did not hit his head. He denies any pain of his left upper extremity. ROS All systems reviewed and are negative except as per history of present illness. Medications Home Meds Active Scripts Amoxicillin/Potassium Clav (Amox-Clav 875-125 mg Tablet) 875-125 mg Tab, 1 TAB PO BID, #10 TAB Prov:AYUSH BENTLEY 09/19/18 Methylprednisolone* (Medrol* DOSE PACK) 4 Mg/Dose-Pack Tab.ds.pk, 4 MG PO . D IRECTED, #1 PACKET Prov:AYUSH BENTLEY 09/19/18 Albuterol Sulfate* (Albuterol Sulfate* Neb) 0.083%-3 Ml Neb, 2.5 MG NEB Q6HWA RESP THERAPY for 2 Days, #8 DOSE Prov:AYUSH BENTLEY 09/19/18 Reported Medications Cyclobenzaprine Hcl* (Cyclobenzaprine Hcl*) 10 Mg Tablet, 10 MG PO BID, #60 TAB 09/23/18 Oxycodone Hcl* (IR) (Roxicodone*) 5 Mg Tab, 5 MG PO DAILY PRN for PAIN, TAB 09/23/18 Sertraline Hcl* (Sertraline Hcl*) 25 Mg Tablet, 25 MG PO DAILY, #30 TAB 09/18/18 Naproxen* (Naproxen*) 500 Mg Tablet, 500 MG PO BID PRN for INFLAMATION, TAB 09/18/18 Discontinued Reported Medications Folic Acid* (Folic Acid*) 1 Mg Tablet, 1 MG PO DAILY, TAB 09/18/18 Metoprolol Tartrate* (Lopressor*) 50 Mg Tab, 50 MG PO BID, #60 TAB 09/18/18 Discontinued Scripts Diclofenac Sodium (Diclo Gel) 1 Each Kit, 1 EACH TP Q6H PRN for PAIN, #60 GM Prov:AYUSH BENTLEY . 09/19/18 Nebulizer (ALTERA NEBULIZER) 1 Each Each, EACH MC Q4H WHILE AWAKE, #1 Prov:AYUSH BENTLEY . 09/19/18 Lactobacillus Acidophilus* (Lactinex*) 1 Tab Chew, 1 TAB PO BID, #20 TAB Prov:AYUSH BENTLEY . 09/19/18 Docusate Sodium* (Colace*) 100 Mg Capsule, 100 MG PO Q12H, #60 CAP 1 Refill Prov:AYUSH BENTLEY . 09/19/18 Hydrocodone Bit-Acetaminophen (Hydrocodone Bit-APAP) 5-325MG Tablet, 1 TAB PO Q4H PRN for PAIN, #30 TAB Prov:MAGALI DARBY 09/06/17 Ferrous Sulfate* (Ferrous Sulfate*) 325 Mg Tabec, 325 MG PO BID for 30 Days, TAB Prov:MAGALI DARBY 09/06/17 Spironolactone* (Aldactone*) 50 Mg Tablet, 50 MG PO DAILY, #30 TAB HOLD IF SBP BELOW 110 OR HR<60 Prov:MAGALI DARBY 09/06/17 Furosemide* (Lasix*) 20 Mg Tablet, 20 MG PO DAILY for 30 Days, TAB Prov:MAGALI DARBY 09/06/17 [Vancomycin Oral Syringe] 50 MG/ML SOLN No Conflict Check, 250 MG PO Q6 for 20 Days Prov:AMGALI DARBY 09/06/17 Allergies Allergies: Coded Allergies: acetaminophen (Verified Allergy, Intermediate, 09/23/18) latex (Verified Allergy, Intermediate, 09/23/18) Opium (Verified Allergy, Unknown, 09/23/18) Uncoded Allergies: OPIATES (Allergy, Intermediate, RASH; TAKES MS CONTIN AT HOME, 06/20/17) (PER RN) PMhx/Soc History of Surgery: Yes (RT.BKA,LT.LUNG SURGERY,LT.ANKLE ,NECK SURGERY) Anesthesia Reaction: No Hx Neurological Disorder: No Hx Respiratory Disorders: Yes (ASTHMA) Hx Cardiac Disorders: No Hx Psychiatric Problems: No Hx Miscellaneous Medical Probl: No Hx Alcohol Use: Yes Hx Substance Use: Yes (CBD OIL EXTERNALLY) Hx Tobacco Use: No Smoking Status: Never smoker Physical Exam Vitals Vital Signs Date Temp Pulse Resp B/P (MAP) Pulse Ox O2 O2 Flow FiO2 Time Delivery Rate 09/23/18 142/99 11:05 (113) 09/23/18 100 96 Room Air 10:49 09/23/18 91 18 134/88 95 Room Air 07:35 (103) 09/23/18 98.3 91 16 139/87 97 07:26 (104) Physical Exam Constitutional:Well-developed. Well-nourished. HEENT:Normocephalic. Atraumatic.Pupils were equal round reactive to light. Moist mucous membranes.No tonsillar exudates. Neck: No nuchal rigidity. No lymphadenopathy. No posterior cervical spine tenderness or step-offs. Respiratory: Not using accessory muscles of respiration.Lungs were clear to auscultation bilaterally. No rhonchi. No rales. No wheezing. Cardiovascular: Regular rate regular rhythm.No murmurs. No rubs were appreciated.S1, S2 normal. Distal pulses are palpable 2+ on the left lower extremity GI: Abdomen was soft. Nontender. Non Distended. No pulsatile abdominal masses or bruits. No rebound. No guarding. Bowel sounds were present and normal. Muscle skeletal: Patient has right below the knee amputation. Full range of motion of the left lower extremity. Full range of motion of the left upper extremity. Patient was unable to flex extend at the right elbow as well as supinate and pronate was difficult of the right upper extremity due to severe pain . effusion with no ecchymosis of the right olecranon process. Compartments are soft of the bilateral upper extremities. Skin: No petechia, no purpura. No lesions on the palms or the soles of the feet. No maculopapular rash. NEURO: Patient was alert, awake, orientated x3.No facial droop. Patient is wheelchair-bound so gait not observed Result Diagram: 09/23/1833 09/23/18832 Results 24 hrs Laboratory Tests Test 09/23/18 08:33 White Blood Count 6.7 10^3/ul Red Blood Count 4.65 10^6/ul Hemoglobin 13.0 g/dl Hematocrit 40.3 % Mean Corpuscular Volume 86.7 fl Mean Corpuscular Hemoglobin 28.0 pg Mean Corpuscular Hemoglobin Concent 32.3 g/dl Red Cell Distribution Width 16.3 % Platelet Count 253 10^3/UL Mean Platelet Volume 10.8 fl Immature Granulocytes % 1.500 % Neutrophils % 79.2 % Lymphocytes % 10.0 % Monocytes % 9.1 % Eosinophils % 0.1 % Basophils % 0.1 % Nucleated Red Blood Cells % 0.0 /100WBC Immature Granulocytes # 0.100 10^3/ul Neutrophils # 5.3 10^3/ul Lymphocytes # 0.7 10^3/ul Monocytes # 0.6 10^3/ul Eosinophils # 0.0 10^3/ul Basophils # 0.0 10^3/ul Nucleated Red Blood Cells # 0.0 10^3/ul Prothrombin Time 13.7 Sec Prothrombin Time Ratio 1.1 INR International Normalized Ratio 1.04 Activated Partial Thromboplast Time 24.2 Sec Sodium Level 141 mmol/L Potassium Level 4.8 mmol/L Chloride Level 109 mmol/L Carbon Dioxide Level 21 mmol/L Anion Gap 11 Blood Urea Nitrogen 17 mg/dl Creatinine 0.90 mg/dl Est Glomerular Filtrat Rate mL/min > 60 mL/min Glucose Level 186 mg/dl Calcium Level 8.9 mg/dl Total Bilirubin 0.2 mg/dl Direct Bilirubin 0.00 mg/dl Indirect Bilirubin 0.2 mg/dl Aspartate Amino Transf (AST/SGOT) 45 IU/L Alanine Aminotransferase (ALT/SGPT) 48 IU/L Alkaline Phosphatase 228 IU/L Troponin I < 0.012 ng/ml Total Protein 7.9 g/dl Albumin 3.7 g/dl Globulin 4.20 g/dl Albumin/Globulin Ratio 0.88 Current Medications Medications Dose Sig/Tony Start Time Status Last (Trade) Ordered Route PRN Stop Time Admin Dose Reason Admin 1 mg ONCE STAT 09/23/18 DC 09/23/18 Hydromorphone IM 07:48 07:59 HCl 09/23/18 07:49 (Dilaudid) Ondansetron 4 mg ONCE STAT 09/23/18 DC 09/23/18 HCl (Zofran ODT 07:48 07:59 Odt) 09/23/18 07:49 1 mg ONCE STAT 09/23/18 DC 09/23/18 Hydromorphone IV 10:54 10:58 HCl 09/23/18 10:55 (Dilaudid) Ondansetron 4 mg ONCE STAT 09/23/18 DC 09/23/18 HCl (Zofran IV 10:54 10:58 Inj) 09/23/18 10:55 Procedures/MDM This is a 53-year-old male who is very pleasant. The patient had an obvious bony deformity and pain of his right upper extremity. Radiographic imaging was obtained of the patient's right elbow and right forearm reviewed by both myself and the radiologist indicate the following: Olecranon fracture is present with mild comminution and up to1.2 cm of dis traction posteriorly. There is overlying soft tissue swelling. The patient had been placed in a long-arm splint for immobilization comfort. I spoke with the orthopedic surgeon Dr. Tucker who kindly came to the bedside to evaluate the patient and evaluation for definitive treatment with surgical int ervention. I obtained a chest radiograph as the patient had a recent history of pneumonia. This was reviewed by myself the radiologist there is no infiltrates no pneumothorax or pleural effusions at this time. No severe electrolyte abnormalities. Patient received intravenous morphine and Zofran for analgesic control and the patient will be admitted in serious condition to the hospitalist. I obtained an EKG for cardiac preoperative clearance. 12 Lead EKG tracing ordered and reviewed by myself showed: Normal sinus rhythm of 93 bpm and no arrhythmia. WA interval normal. QRS duration normal. No ST segment elevation No ST segment depression. No changes consistent with acute ischemia. Departure Diagnosis: Primary Impression: Elbow fracture, right Encounter type: initial encounter Fracture type: closed Qualified Codes: S42.401A - Unspecified fracture of lower end of right humerus, initial encounter for closed fracture Condition: Serious JANAE ELLISON MD Sep 23, 2018 15:07
--- NOTE | 2018-09-23 16:21 | PREAC ---
Date/Time of Note Date/Time of Note DATE: 09/23/18 TIME: 16:18 Anesthesia Eval and Record Evaluation Time Pre-Procedure Interview DATE: 09/23/18 TIME: 16:18 Age 53 Sex male NPO: 8 hrs Preoperative diagnosis Right Elbow Fracture Planned procedure ORIF of Right Elbow Past Medical History Past Medical History: Includes Pulm: Asthma Infection(s): Hep C Surgery & Anesthesia Issues No known issue Meds Anticoagulation: No Beta Preet within 24 hr: No Reason Beta Preet not given: Pt. not on B-Preet Active Scripts Amoxicillin/Potassium Clav (Amox-Clav 875-125 mg Tablet) 875-125 mg Tab, 1 TAB PO BID, #10 TAB Prov:CHING BENTLEYTERRI M. 09/19/18 Methylprednisolone* (Medrol* DOSE PACK) 4 Mg/Dose-Pack Tab.ds.pk, 4 MG PO . DIRECTED, #1 PACKET Prov:SHEREECHINGTERRI M. 09/19/18 Albuterol Sulfate* (Albuterol Sulfate* Neb) 0.083%-3 Ml Neb, 2.5 MG NEB Q6HWA RESP THERAPY for 2 Days, #8 DOSE Prov:CHING BENTLEYTERRI M. 09/19/18 Reported Medications Cyclobenzaprine Hcl* (Cyclobenzaprine Hcl*) 10 Mg Tablet, 10 MG PO BID, #60 TAB 09/23/18 Oxycodone Hcl* (IR) (Roxicodone*) 5 Mg Tab, 5 MG PO DAILY PRN for PAIN, TAB 09/23/18 Sertraline Hcl* (Sertraline Hcl*) 25 Mg Tablet, 25 MG PO DAILY, #30 TAB 09/18/18 Naproxen* (Naproxen*) 500 Mg Tablet, 500 MG PO BID PRN for INFLAMATION, TAB 09/18/18 Discontinued Reported Medications Folic Acid* (Folic Acid*) 1 Mg Tablet, 1 MG PO DAILY, TAB 09/18/18 Metoprolol Tartrate* (Lopressor*) 50 Mg Tab, 50 MG PO BID, #60 TAB 09/18/18 Discontinued Scripts Diclofenac Sodium (Diclo Gel) 1 Each Kit, 1 EACH TP Q6H PRN for PAIN, #60 GM Prov:SHEREECHINGTERRI Minor. 09/19/18 Nebulizer (ALTERA NEBULIZER) 1 Each Each, EACH MC Q4H WHILE AWAKE, #1 Prov:AYUSH BENTLEY. 09/19/18 Lactobacillus Acidophilus* (Lactinex*) 1 Tab Chew, 1 TAB PO BID, #20 TAB Prov:AYUSH BENTLEY. 09/19/18 Docusate Sodium* (Colace*) 100 Mg Capsule, 100 MG PO Q12H, #60 CAP 1 Refill Prov:AYUSH BENTLEY. 09/19/18 Hydrocodone Bit-Acetaminophen (Hydrocodone Bit-APAP) 5-325MG Tablet, 1 TAB PO Q4H PRN for PAIN, #30 TAB Prov:MAGALI DARBY 09/06/17 Ferrous Sulfate* (Ferrous Sulfate*) 325 Mg Tabec, 325 MG PO BID for 30 Days, TAB Prov:MAGALI DARBY 09/06/17 Spironolactone* (Aldactone*) 50 Mg Tablet, 50 MG PO DAILY, #30 TAB HOLD IF SBP BELOW 110 OR HR<60 Prov:MAGALI DARBY 09/06/17 Furosemide* (Lasix*) 20 Mg Tablet, 20 MG PO DAILY for 30 Days, TAB Prov:MAGALI DARBY 09/06/17 [Vancomycin Oral Syringe] 50 MG/ML SOLN No Conflict Check, 250 MG PO Q6 for 20 Days Prov:MAGALI DARBY 09/06/17 Current Medications IV Flush (NS 3 ml) 3 ml PER PROTOCOL IV ; Start 09/23/18 at 12:00 Ondansetron HCl (Zofran Inj) 4 mg Q6H PRN IV NAUSEA/VOMITING; Start 09/23/18 at 12:00 Sertraline HCl (Zoloft) 25 mg DAILY PO ; Start 09/24/18 at 09:00 Sodium Chloride 1,000 ml @ 75 mls/hr [id number] IV Last administered on 09/23/18at 14:28; Admin Dose 75 MLS/HR; Start 09/23/18 at 13:00 Hydromorphone HCl (Dilaudid) 1 mg Q4H PRN IV .SEVERE PAIN 7-10 Last administered on 09/23/18at 14:40; Admin Dose 1 MG; Start 09/23/18 at 14:36 Meds reviewed: Yes Allergies Coded Allergies: acetaminophen (Verified Allergy, Intermediate, 09/23/18) latex (Verified Allergy, Intermediate, 09/23/18) Opium (Verified Allergy, Unknown, 09/23/18) Uncoded Allergies: OPIATES (Allergy, Intermediate, RASH; TAKES MS CONTIN AT HOME, 06/20/17) (PER RN) Allergies Reviewed: Yes Labs/Studies Labs Reviewed: Reviewed by anesthesiologist Result Diagram: 09/23/18 0833 09/23/18 0833 Laboratory Tests 09/23/18 08:33 test: N/A Studies: ECG (n/a), CXR (n/a) Pre-procedure Exam Last vitals Vital Signs Date Temp Pulse Resp B/P (MAP) Pulse Ox O2 O2 Flow FiO2 Time Delivery Rate 09/23/18 98.8 79 18 153/75 96 Room Air 15:15 (101) Airway: Adequate mouth opening, Adequate thyromental dist Mallampati: Mallampati II Teeth: Normal Lung: Normal Heart: Normal ASA Physical Status ASA physical status: 2 Emergency: None Planned Anesthetic General/MAC: ETT Nerve block: Brachial plexus (right) Planned Pain Management Single shot nerve block, Parenteral pain med Pre-operative Attestations Prior to commencing anesthesia and surgery, the patient was re-evaluated, there was verification of: *The patient's identity *The results of appropriate recent lab work and preoperative vital signs *The above evaluation not changing prior to induction *Anesthetic plan, risk benefits, alternative and complications discussed with patient/family; questions answered; patient/family understands, accepts and wishes to proceed. MONICA BARCLAY MD Sep 23, 2018 16:21
[2018-09-23] MEDS ORDERED: PROPOFOL 20 ML ONE (16:23)
[2018-09-23] MEDS ORDERED: ROCURONIUM 50 MG INJ ONE (16:23)
[2018-09-23] MEDS ORDERED: ROPIVACAINE 0.5 % 30 ML VIAL ONE (16:24)
[2018-09-23] MEDS ORDERED: MIDAZOLAM 1 MG/ML 2 ML INJ ONE ×2 (16:24)
[2018-09-23] MEDS ORDERED: HYDROmorphONE 2 MG/ML SYG ONE (16:24)
[2018-09-23] MEDS ORDERED: METOCLOPRAMIDE 10 MG INJ IV PRN (16:30)
[2018-09-23] MEDS ORDERED: DIPHENHYDRAMINE 50 MG INJ IV PRN (16:30)
[2018-09-23] MEDS ORDERED: HYDROmorphONE 1 MG/5 ML IV SYRINGE IV PRN ×2 (16:30)
[2018-09-23] MEDS ORDERED: EPHEDrine SULFATE 50 MG/5 ML SYG IV PRN (16:30)
[2018-09-23] MEDS ORDERED: MEPERIDINE 25 MG INJ IV PRN (16:30)
[2018-09-23] MEDS ORDERED: OXYCODONE/ACETAMINOPHEN (5/325) TAB PO PRN ×2 (16:30)
[2018-09-23] MEDS ORDERED: morphine (1 MG/ML) 10ML SYRINGE IV PRN ×2 (16:30)
[2018-09-23] MEDS ORDERED: LABETALOL HCL 20MG INJ IV PRN (16:30)
[2018-09-23] MEDS ORDERED: ONDANSETRON 4 MG INJ ONE (17:35)
[2018-09-23] MEDS ORDERED: METOCLOPRAMIDE 10 MG INJ ONE (17:35)
[2018-09-23] MEDS ORDERED: DEXAMETHASONE 4 MG/ML 5 ML INJ ONE (17:35)
[2018-09-23] MEDS ORDERED: NEOSTIGMINE 10 MG INJ ONE (19:44)
[2018-09-23] MEDS ORDERED: GLYCOPYRROLATE 0.4 MG INJ ONE ×2 (19:44)
--- NOTE | 2018-09-23 20:04 | PAC ---
Date/Time of Note Date/Time of Note DATE: 09/23/18 TIME: 20:03 Post-Anesthesia Notes Post-Anesthesia Note Last documented vital signs Vital Signs Date Temp Pulse Resp B/P (MAP) Pulse Ox O2 O2 Flow FiO2 Time Delivery Rate 09/23/18 98.0 79 18 153/75 96 Room Air 20:07 (101) Activity: WNL Respiratory function: WNL Cardiovascular function: WNL Mental status: Baseline Pain reasonably controlled: Yes Hydration appropriate: Yes Nausea/Vomiting absent: Yes MONICA BARCLAY MD Sep 23, 2018 20:04
[2018-09-23] MEDS: HYDROmorphONE 1 MG/5 ML IV SYRINGE IV PRN ×2 (20:17→20:24)
--- NOTE | 2018-09-23 20:25 | OPR ---
Date/Time of Note Date/Time of Note DATE: 09/23/18 TIME: 20:11 Operative Report Procedure Date: Sep 23, 2018 Preoperative Diagnosis Right displaced transverse olecranon fracture Postoperative Diagnosis Right displaced transverse olecranon fracture Operation/Procedure Performed Open reduction internal fixation right olecranon fracture Primary repair of triceps tendon Surgeon see signature line Tugboat Mate None Anesthesia Type: general Estimated Blood Loss: 50 - 100 ml's Transfusion none Specimen None Grafts/Implants [place] right olecranon plate Size: 4 hole shaft plate Complications none Procedure Description Indications and consent: Jordan Cordova is a 53-year-old male who presented emergency department with right elbow pain and was diagnosed with a displaced transverse olecranon fracture. The patient is 1 year status post right BKA secondary to osteomyelitis after a lower extremity trauma. He was transferring from his w heelchair to his bed and felt a pop in his right elbow and had sudden pain. Patient does note that he has had falls in the last several weeks and has had some elbow pain. On presentation he maintained significant extensor mechanism function however the olecranon was more than a centimeter displaced and involving more than 50% of the joint. There is no dislocation. On examination he had global decreased sensation to his hand which is his baseline from cervical disc disease status post surgery. Denied any changes after his elbow injury. He was neurovascularly intact to his baseline. I reviewed the benefits and risks with the patient. I did tell the patient that there was an option to treat this without surgery however given the displacement and his reliance on his arm for transfers I did recommend open reduction internal fixation of the olecranon fracture. Risks included but not limited to convocation anesthesia, bleeding, infection, malunion, nonunion, hardware failure, hardware irritation/prominence, stiffness, need for revision surgery, neurovascular injury. Of note the patient has hepatitis C. Procedure in detail: The patient brought to the operating room. He was transferred from the hospital bed to the operative table in the supine position. At that time the patient was given general anesthesia. He was then put in a left decubitus position with his right arm placed over an arm board used as a bolster. All bony prominences well-padded. At this time fluoroscopy was used to ensure that adequate views were obtainable. The right upper extremity was prepped and draped in normal sterile fashion. Timeout was performed for the patient's name, medical record number, diagnosis, procedure performed and laterality procedure. 2 g of Ancef was dosed. At this time the medial lateral aspects of the arm were marked with a marking pen. A posterior approach to the ulna and olecranon was marked out with a marking pen. This sharply incised with a #10 blade. Followed by use of Bovie. Distally where the ulna was a subcutaneous Bovie was used to dissect directly to bone. As dissection was carried proximally the fracture was encountered. Fracture hematoma was excised. The triceps tendon was well attached to the large olecranon fragment. The tendon bulky in size. Fracture hematoma was irrigated and cleaned out followed by 15 blade to obtain a good cortical read. A Hylton clamp was used to for pulmonary fixation. It visually looked anatomically reduced which was confirmed on both AP and lateral imaging. Secondary to the size of the triceps tendon insertion it was a split and carefully elevated to allow room for plate to sit directly on bone. A right olecranon plate size 4 hole shaft plate was placed over the olecranon and proximal ulna. This allowed 3 proximal and 4 distal screws to be placed. Placement was help pulmonary with K wires this was confirmed on fluoroscopy. At this time the most proximal screw hole was drilled which was stopped just short of the fracture line in order to obtain compression. The appropriately sized cortical screw was placed in the most proximal hole again ensuring that it did not cross the fracture line. Attention turned towards the distal end of the plate. A bicortical compression screw was placed in compression mode. As the screw was inserted there was visual compression of the fracture site. K wires were removed and a Hylton clamp was removed. The 2 remaining proximal screw holes were then drilled and locking screws were placed. One was unicortical while the other one was bicortical ensuring it was not entering the joint. The remaining distal screw holes were then drilled and filled with appropriate length screws. At this time #2 Ethibond was used to repair the triceps tendon. To further reinforce the triceps tendon a Krakw stitch was placed and tied around the plate. The wound was copiously irrigated. Subcutaneous tissues were closed with 2-0 Vicryl in simple interrupted fashion followed by 2-0 nylon in simple interrupted fashion for the skin. The wound was dressed with Mepilex Ag followed by a posterior slab long-arm splint. All counts were correct x2. Disposition: Patient was extubated and transferred to PACU he will be nonweightbearing on his right upper extremity. Postop day #2 his in stable condition. Splint can be removed and discontinued and start physical and occupational therapy. He is to have gentle active assisted range of motion for flexion extension and full range of motion for pronation and supination. He received 2 g of Ancef for the next 24 hours. He will likely need to go to SNF for further care and rehab as he previously was homeless and only recently secured housing. LEATHA ANDRE MD Sep 23, 2018 20:25
[2018-09-23] MEDS: CEFAZOLIN 2 GM/50 ML (PMX) 50 ML IVPB SCH (21:17)
[2018-09-24 01:18] VITALS: BP 170/80; PULSE 67; RESP 16
[2018-09-24 03:56] VITALS: BP 163/79; PULSE 64; RESP 16
[2018-09-24] MEDS: HYDROmorphONE 1 MG/ML SYG IV PRN (04:14)
[2018-09-24] MEDS: CEFAZOLIN 2 GM/50 ML (PMX) 50 ML IVPB SCH ×2 (05:34→14:18)
[2018-09-24] MEDS ORDERED: HYDROmorphONE 1 MG/ML SYG IV ONE (06:00)
[2018-09-24] MEDS: HYDROmorphONE 2 MG/ML SYG IV PRN ×5 (06:16→22:43)
[2018-09-24 07:28] VITALS: BP 145/75; PULSE 72; RESP 18
[2018-09-24] MEDS: SERTRALINE 50 MG TAB PO SCH (08:42)
[2018-09-24] MEDS ORDERED: oxyCODONE 5 MG TAB PO PRN ×4 (09:30→10:30)
[2018-09-24] MEDS ORDERED: oxyCODONE 15 MG TAB PO PRN (09:30)
--- NOTE | 2018-09-24 10:24 | PN ---
Date/Time of Note Date/Time of Note DATE: 09/24/18 TIME: 10:21 Assessment/Plan Lines/Catheters IV Catheter Type (from Nrs): Peripheral IV Assessment/Plan Chief Complaint/Hosp Course 53-year-old male postop day #1 status post ORIF right olecranon fracture. Overall patient is doing well. Some issues with pain control overnight. Patient denies any change to his baseline numbness and tingling in his hand. Plan: PT/OT to start postop day #2. Splint can be removed and discontinued on postop day #2. She is to have full range of motion for supination and pronation. For elbow motion active assisted range of motion only. Nonweightbearing right upper extremity Pain control, increased oral medication Complete postoperative antibiotics. Discharge planning: Patient will likely need an SNF secondary to nonweightbearing status of right upper extremity and right BKA. Can be discharged from orthopedic standpoint once appropriate discharge arrangements have been made. Follow-up in clinic in 2 weeks Subjective 24 Hr Interval Summary Patient doing well No acute events overnight Pain is moderately controlled Exam/Review of Systems Vital Signs Vitals Vital Signs Date Temp Pulse Resp B/P (MAP) Pulse Ox O2 O2 Flow FiO2 Time Delivery Rate 09/24/18 98.2 72 18 145/75 96 07:28 (98) 09/24/18 Room Air 03:56 09/23/18 10.0 19:59 Intake and Output 09/23/18 09/23/18 09/24/18 1414:59 22:59 06:59 IntakeIntake Total 1313 ml 450 ml OutputOutput Total 50 ml 900 ml BalanceBalance 1263 ml -450 ml Exam Free Text/Dictation General: Awake, alert, in no acute distress, pleasant and cooperative Heart: regular rhythm Lungs: breathing comfortably, no tachypnea or dyspnea MUSCULOSKELETAL: Right upper extremity: Splint clean, dry, intact. Sensation intact to baseline in a median, ulnar, radial, and axillary distribution. Motor is intact in a median, ulnar, radial, anterior interosseous, and posterior interosseous nerve distribution. Radial and ulnar artery are +2. Wrist extension and flexion are intact. Compartments are soft. Results Result Diagram: 09/24/18 0456 09/24/18 0455 LEATHA ANDRE MD Sep 24, 2018 10:24
[2018-09-24] MEDS: oxyCODONE 15 MG TAB PO PRN ×3 (11:55→21:13)
[2018-09-24] MEDS: SOD CHLORIDE 0.9% 1,000 ML IV SCH (15:40)
[2018-09-24 15:53] VITALS: BP 131/72; PULSE 68; RESP 19
--- NOTE | 2018-09-24 18:25 | CONS ---
Assessment/Plan Assessment/Plan Hospital Course (Demo Recall) 53-year-old male with comorbidities including hepatitis C, iron deficiency, depression, wheelchair-bound secondary to right below knee amputation, and recent hospitalization for community acquired pneumonia had a mechanical fall with impact to the right upper extremity with resultant right olecranon fracture. He underwent open reduction internal fixation right olecranon fracture and primary repair of triceps tendon. A urological consultation was requested because he has been complaining of pain in his testicles On the exam the testicles appeared to be normal there is no mass and no erythema. He states he did have a lot of enlargement of his scrotum about an year ago and he most likely had bilateral epididymitis and that may be a reason why his testes are little small. The testicular ultrasound was done and showed: The right testicle measures 3.0 x 1.4 x 2.0 cm. The left testicle measures 3.4 x 1.2 x 2.0 cm. There is normal size and echogenicity and morphology bilaterally. There is normal blood flow seen bilaterally. The epididymi are normal. No hydrocele is identified. Left-sided varicocele present. The soft tissues are unremarkable. No mass or cyst or other abnormality is seen Impression bilateral testicular pain. Both testes are nontender and normal except being on the low end of size. Recommendation would be to leave them alone and should he have any pain take pain medications and try to avoid palpating them again and again Consultation Date/Type/Reason Admit Date/Time September 23, 2018 Date of Consultation: Sep 24, 2018 Type of Consult Urology Reason for Consultation Bilateral testicular pain Requesting Provider: MITUL RUBALCAVA MD Date/Time of Note DATE: 09/24/18 TIME: 18:10 Hx of Present Illness 53-year-old male with comorbidities including hepatitis C, iron deficiency, depression, wheelchair-bound secondary to right below knee amputation, and recent hospitalization for community acquired pneumonia had a mechanical fall with impact to the right upper extremity with resultant right olecranon fracture. He underwent open reduction internal fixation right olecranon fracture and primary repair of triceps tendon. A urological consultation was requested because he has been complaining of pain in his testicles. Constitutional: no complaints Eyes: no complaints ENT: no complaints Respiratory: other (History of pneumonia in the past) Cardiovascular: no complaints Gastrointestinal: no complaints Genitourinary: other (He states he has been having pain in his testicles for about one year. He was concerned about having cancer. He also states that when he has erections and ejaculate a little semen or nothing comes out.) Musculoskeletal: neck pain (He had 3 surgeries on his neck.) Skin: no complaints Neurologic: other (He states he does not feel on the lateral side of his both lower extremities) Endocrine: no complaints Lymphatic: no complaints Psychological: depression Past Medical History Medical History: no pertinent history, other (History of hepatitis C and cirrhosis) Home Meds Active Scripts Amoxicillin/Potassium Clav (Amox-Clav 875-125 mg Tablet) 875-125 mg Tab, 1 TAB PO BID, #10 TAB Prov:AYUSH BENTLEY 09/19/18 Methylprednisolone* (Medrol* DOSE PACK) 4 Mg/Dose-Pack Tab.ds.pk, 4 MG PO . DIRECTED, #1 PACKET Prov:AYUSH BENTLEY. 09/19/18 Albuterol Sulfate* (Albuterol Sulfate* Neb) 0.083%-3 Ml Neb, 2.5 MG NEB Q6HWA RESP THERAPY for 2 Days, #8 DOSE Prov:CHING BENTLEYTERRI Minor. 09/19/18 Reported Medications Cyclobenzaprine Hcl* (Cyclobenzaprine Hcl*) 10 Mg Tablet, 10 MG PO BID, #60 TAB 09/23/18 Oxycodone Hcl* (IR) (Roxicodone*) 5 Mg Tab, 5 MG PO DAILY PRN for PAIN, TAB 09/23/18 Sertraline Hcl* (Sertraline Hcl*) 25 Mg Tablet, 25 MG PO DAILY, #30 TAB 09/18/18 Naproxen* (Naproxen*) 500 Mg Tablet, 500 MG PO BID PRN for INFLAMATION, TAB 09/18/18 Discontinued Reported Medications Folic Acid* (Folic Acid*) 1 Mg Tablet, 1 MG PO DAILY, TAB 09/18/18 Metoprolol Tartrate* (Lopressor*) 50 Mg Tab, 50 MG PO BID, #60 TAB 09/18/18 Discontinued Scripts Diclofenac Sodium (Diclo Gel) 1 Each Kit, 1 EACH TP Q6H PRN for PAIN, #60 GM Prov:SHEREE,AYUSH Minor. 09/19/18 Nebulizer (ALTERA NEBULIZER) 1 Each Each, EACH MC Q4H WHILE AWAKE, #1 Prov:AYUSH BENTLEY. 09/19/18 Lactobacillus Acidophilus* (Lactinex*) 1 Tab Chew, 1 TAB PO BID, #20 TAB Prov:AYUSH BENTLEY. 09/19/18 Docusate Sodium* (Colace*) 100 Mg Capsule, 100 MG PO Q12H, #60 CAP 1 Refill Prov:AYUSH BETNLEY. 09/19/18 Hydrocodone Bit-Acetaminophen (Hydrocodone Bit-APAP) 5-325MG Tablet, 1 TAB PO Q4H PRN for PAIN, #30 TAB Prov:MAGALI DARBY 09/06/17 Ferrous Sulfate* (Ferrous Sulfate*) 325 Mg Tabec, 325 MG PO BID for 30 Days, TAB Prov:MAGALI DARBY 09/06/17 Spironolactone* (Aldactone*) 50 Mg Tablet, 50 MG PO DAILY, #30 TAB HOLD IF SBP BELOW 110 OR HR<60 Prov:MAGALI DARBY 09/06/17 Furosemide* (Lasix*) 20 Mg Tablet, 20 MG PO DAILY for 30 Days, TAB Prov:MAGALI DARBY 09/06/17 [Vancomycin Oral Syringe] 50 MG/ML SOLN No Conflict Check, 250 MG PO Q6 for 20 Days Prov:MAGALI DARBY 09/06/17 Medications Current Medications IV Flush (NS 3 ml) 3 ml PER PROTOCOL IV ; Start 09/23/18 at 12:00 Ondansetron HCl (Zofran Inj) 4 mg Q6H PRN IV NAUSEA/VOMITING; Start 09/23/18 at 12:00 Sertraline HCl (Zoloft) 25 mg DAILY PO Last administered on 09/24/18at 08:42; Admin Dose 25 MG; Start 09/24/18 at 09:00 Sodium Chloride 1,000 ml @ 75 mls/hr [id number] IV Last administered on 09/23/18at 21:18; Admin Dose 75 MLS/HR; Start 09/23/18 at 13:00 Cefazolin Sodium/ Dextrose 50 ml @ 100 mls/hr Q8 IVPB Last administered on 09/24/18at 14:18; Admin Dose 100 MLS/HR; Start 09/23/18 at 22:00; Stop 09/24/18 a t 21:59 Hydromorphone HCl (Dilaudid) 1.5 mg Q4H PRN IV SEVERE PAIN LEVEL 7-10 Last administered on 09/24/18at 14:17; Admin Dose 1.5 MG; Start 09/24/18 at 06:30 Oxycodone HCl (Roxicodone) 5 mg Q4H PRN PO MODERATE PAIN LEVEL 4-6; Start 09/24/18 at 10:30 Oxycodone HCl (Roxicodone) 10 mg Q4H PRN PO MODERATE PAIN LEVEL 4-6; Start 09/24/18 at 10:30 Oxycodone HCl (Roxicodone) 15 mg Q4H PRN PO MODERATE PAIN LEVEL 4-6 Last administered on 09/24/18at 16:46; Admin Dose 15 MG; Start 09/24/18 at 10:30 Allergies: Coded Allergies: acetaminophen (Verified Allergy, Intermediate, 09/23/18) latex (Verified Allergy, Intermediate, 09/23/18) codeine (Verified Adverse Reaction, Unknown, TAKES MS CONTIN AT HOME, 09/24/18) Past Surgical History Past Surgical Hx: other (Right below-knee amputation, surgery on his neck x3, right shoulder surgery.) Social History Alcohol Use: occasionally (1-2 drinks a week) Smoking Status: Never smoker Drug Use: none, marijuana Exam/Review of Systems Exam Vitals Vital Signs Date Temp Pulse Resp B/P (MAP) Pulse Ox O2 O2 Flow FiO2 Time Delivery Rate 09/24/18 97.9 68 19 131/72 98 15:53 (91) 09/24/18 Room Air 03:56 09/23/18 10.0 19:59 Intake and Output 09/23/18 09/23/18 09/24/18 1515:00 23:00 07:00 IntakeIntake Total 1313 ml 450 ml OutputOutput Total 50 ml 900 ml BalanceBalance 1263 ml -450 ml Constitutional: alert, oriented Psych: depression Head: normocephalic, atraumatic Eyes: nl conjunctiva ENMT: nl external ears & nose Neck: supple, non-tender Respiratory: normal air movement; No wheezing Cardiovascular: No jugular venous distention (JVD) Gastrointestinal: soft, non-tender Genitourinary - Male: nl penis, nl scrotum, other (The area that he is complaining of pain correspond to the epididymis. He is probably palpating it and again and again and that makes it sore.) Musculoskeletal: other (Status post surgery on his right shoulder.) Extremities: other (Right below-knee amputation); No calf tenderness Neurological: nl mental status Skin: nl turgor Results Result Diagram: 09/24/18 0456 09/24/18 0455 Results 24hrs Laboratory Tests Test 09/24/18 04:55 09/24/18 04:56 Sodium Level 139 Potassium Level 4.4 Chloride Level 106 Carbon Dioxide Level 22 Anion Gap 11 Blood Urea Nitrogen 19 Creatinine 0.78 Est Glomerular Filtrat Rate mL/min > 60 Glucose Level 158 Calcium Level 8.7 Phosphorus Level 3.3 Magnesium Level 1.9 Total Bilirubin 0.6 Direct Bilirubin 0.00 Indirect Bilirubin 0.6 Aspartate Amino Transf (AST/SGOT) 27 Alanine Aminotransferase (ALT/SGPT) 31 Alkaline Phosphatase 133 H Total Protein 6.7 # Albumin 3.2 L Globulin 3.50 H Albumin/Globulin Ratio 0.91 White Blood Count 12.2 #H Red Blood Count 4.01 L Hemoglobin 11.2 L Hematocrit 35.1 L Mean Corpuscular Volume 87.5 Mean Corpuscular Hemoglobin 27.9 L Mean Corpuscular Hemoglobin Concent 31.9 L Red Cell Distribution Width 16.1 H Platelet Count 236 Mean Platelet Volume 10.7 H Immature Granulocytes % 1.000 H Neutrophils % 84.4 H Lymphocytes % 4.9 L Monocytes % 9.5 Eosinophils % 0.0 Basophils % 0.2 Nucleated Red Blood Cells % 0.0 Immature Granulocytes # 0.120 H Neutrophils # 10.3 H Lymphocytes # 0.6 L Monocytes # 1.2 H Eosinophils # 0.0 Basophils # 0.0 Nucleated Red Blood Cells # 0.0 Imaging Imaging Scrotal ultrasound: The right testicle measures 3.0 x 1.4 x 2.0 cm. The left testicle measures 3.4 x 1.2 x 2.0 cm. There is normal size and echogenicity and morphology bilaterally. There is normal blood flow seen bilaterally. The epididymi are normal. No hydrocele is identified. Left-sided varicocele present. The soft tissues are unremarkable. No mass or cyst or other abnormality is seen. Medications Medication Current Medications IV Flush (NS 3 ml) 3 ml PER PROTOCOL IV ; Start 09/23/18 at 12:00 Ondansetron HCl (Zofran Inj) 4 mg Q6H PRN IV NAUSEA/VOMITING; Start 09/23/18 at 12:00 Sertraline HCl (Zoloft) 25 mg DAILY PO Last administered on 09/24/18at 08:42; Admin Dose 25 MG; Start 09/24/18 at 09:00 Sodium Chloride 1,000 ml @ 75 mls/hr [id number] IV Last administered on 09/23/18 21:18; Admin Dose 75 MLS/HR; Start 09/23/18 at 13:00 Cefazolin Sodium/ Dextrose 50 ml @ 100 mls/hr Q8 IVPB Last administered on 09/14 08/04at 14:18; Admin Dose 100 MLS/HR; Start 09/23/18 at 22:00; Stop 09/24/18 at 21:59 Hydromorphone HCl (Dilaudid) 1.5 mg Q4H PRN IV SEVERE PAIN LEVEL 7-10 Last administered on 09/24/18 14:17; Admin Dose 1.5 MG; Start 09/24/18 at 06:30 Oxycodone HCl (Roxicodone) 5 mg Q4H PRN PO MODERATE PAIN LEVEL 4-6; Start 09/24/18 at 10:30 Oxycodone HCl (Roxicodone) 10 mg Q4H PRN PO MODERATE PAIN LEVEL 4-6; Start 09/24/18 at 10:30 Oxycodone HCl (Roxicodone) 15 mg Q4H PRN PO MODERATE PAIN LEVEL 4-6 Last ad ministered on 09/24/18at 16:46; Admin Dose 15 MG; Start 09/24/18 at 10:30 MAURO MARTINEZ MD Sep 24, 2018 18:20
--- NOTE | 2018-09-24 18:58 | PN ---
Date/Time of Note Date/Time of Note DATE: 09/24/18 TIME: 18:56 Assessment/Plan VTE Prophylaxis Risk score (from Ns)>0 risk: 9 SCD applied (from Ns): Yes SCD contraindicated: low risk/ambulating Pharmacological prophylaxis: LMWH Lines/Catheters IV Catheter Type (from Nrsg): Peripheral IV Assessment/Plan Hospital Course Assessment and plan 1. Right elbow fracture status post ORIF. Stable, nonweightbearing, discharge to sniff if he qualifies 2. Right BKA status stable, observe 3. Chronic debility wheelchair status 4. Testicular pain appears benign. This stable observed. Left varicocele. Possible history of bilateral epididymitis 5. Hepatitis C viremia 6. Chronic major depression 7. History of cervical myelopathy Subjective: Events noted no fever Objective: Vital signs stable Physical exam No pallor Regular Clear Benign Rt BKA status; rt elbow in sling Result Diagram: 09/24/18 0456 09/24/18 0455 Results 24hrs Laboratory Tests Test 09/24/18 04:55 09/24/18 04:56 Sodium Level 139 Potassium Level 4.4 Chloride Level 106 Carbon Dioxide Level 22 Anion Gap 11 Blood Urea Nitrogen 19 Creatinine 0.78 Est Glomerular Filtrat Rate mL/min > 60 Glucose Level 158 Calcium Level 8.7 Phosphorus Level 3.3 Magnesium Level 1.9 Total Bilirubin 0.6 Direct Bilirubin 0.00 Indirect Bilirubin 0.6 Aspartate Amino Transf (AST/SGOT) 27 Alanine Aminotransferase (ALT/SGPT) 31 Alkaline Phosphatase 133 H Total Protein 6.7 # Albumin 3.2 L Globulin 3.50 H Albumin/Globulin Ratio 0.91 White Blood Count 12.2 #H Red Blood Count 4.01 L Hemoglobin 11.2 L Hematocrit 35.1 L Mean Corpuscular Volume 87.5 Mean Corpuscular Hemoglobin 27.9 L Mean Corpuscular Hemoglobin Concent 31.9 L Red Cell Distribution Width 16.1 H Platelet Count 236 Mean Platelet Volume 10.7 H Immature Granulocytes % 1.000 H Neutrophils % 84.4 H Lymphocytes % 4.9 L Monocytes % 9.5 Eosinophils % 0.0 Basophils % 0.2 Nucleated Red Blood Cells % 0.0 Immature Granulocytes # 0.120 H Neutrophils # 10.3 H Lymphocytes # 0.6 L Monocytes # 1.2 H Eosinophils # 0.0 Basophils # 0.0 Nucleated Red Blood Cells # 0.0 Exam/Review of Systems Exam Vitals Vital Signs Date Temp Pulse Resp B/P (MAP) Pulse Ox O2 O2 Flow FiO2 Time Delivery Rate 09/24/18 97.9 68 19 131/72 98 15:53 (91) 09/24/18 Room Air 03:56 09/23/18 10.0 19:59 Intake and Output 09/23/18 09/23/18 09/24/18 1515:00 23:00 07:00 IntakeIntake Total 1313 ml 450 ml OutputOutput Total 50 ml 900 ml BalanceBalance 1263 ml -450 ml Results Results 24hrs Laboratory Tests Test 09/24/18 04:55 09/24/18 04:56 Sodium Level 139 Potassium Level 4.4 Chloride Level 106 Carbon Dioxide Level 22 Anion Gap 11 Blood Urea Nitrogen 19 Creatinine 0.78 Est Glomerular Filtrat Rate mL/min > 60 Glucose Level 158 Calcium Level 8.7 Phosphorus Level 3.3 Magnesium Level 1.9 Total Bilirubin 0.6 Direct Bilirubin 0.00 Indirect Bilirubin 0.6 Aspartate Amino Transf (AST/SGOT) 27 Alanine Aminotransferase (ALT/SGPT) 31 Alkaline Phosphatase 133 H Total Protein 6.7 # Albumin 3.2 L Globulin 3.50 H Albumin/Globulin Ratio 0.91 White Blood Count 12.2 #H Red Blood Count 4.01 L Hemoglobin 11.2 L Hematocrit 35.1 L Mean Corpuscular Volume 87.5 Mean Corpuscular Hemoglobin 27.9 L Mean Corpuscular Hemoglobin Concent 31.9 L Red Cell Distribution Width 16.1 H Platelet Count 236 Mean Platelet Volume 10.7 H Immature Granulocytes % 1.000 H Neutrophils % 84.4 H Lymphocytes % 4.9 L Monocytes % 9.5 Eosinophils % 0.0 Basophils % 0.2 Nucleated Red Blood Cells % 0.0 Immature Granulocytes # 0.120 H Neutrophils # 10.3 H Lymphocytes # 0.6 L Monocytes # 1.2 H Eosinophils # 0.0 Basophils # 0.0 Nucleated Red Blood Cells # 0.0 Medications Medication Current Medications IV Flush (NS 3 ml) 3 ml PER PROTOCOL IV ; Start 09/23/18 at 12:00 Ondansetron HCl (Zofran Inj) 4 mg Q6H PRN IV NAUSEA/VOMITING; Start 09/23/18 at 12:00 Sertraline HCl (Zoloft) 25 mg DAILY PO Last administered on 09/24/18at 08:42; A dmin Dose 25 MG; Start 09/24/18 at 09:00 Sodium Chloride 1,000 ml @ 75 mls/hr [id number] IV Last administered on 09/23/18at 21:18; Admin Dose 75 MLS/HR; Start 09/23/18 at 13:00 Cefazolin Sodium/ Dextrose 50 ml @ 100 mls/hr Q8 IVPB Last administered on 09/24/18at 14:18; Admin Dose 100 MLS/HR; Start 09/23/18 at 22:00; Stop 09/24/18 at 21:59 Hydromorphone HCl (Dilaudid) 1.5 mg Q4H PRN IV SEVERE PAIN LEVEL 7-10 Last administered on 09/24/18at 18:26; Admin Dose 1.5 MG; Start 09/24/18 at 06:30 Oxycodone HCl (Roxicodone) 5 mg Q4H PRN PO MODERATE PAIN LEVEL 4-6; Start 09/24/18 at 10:30 Oxycodone HCl (Roxicodone) 10 mg Q4H PRN PO MODERATE PAIN LEVEL 4-6; Start 09/24/18 at 10:30 Oxycodone HCl (Roxicodone) 15 mg Q4H PRN PO MODERATE PAIN LEVEL 4-6 Last administered on 09/24/18at 16:46; Admin Dose 15 MG; Start 09/24/18 at 10:30 MITUL RUBALCAVA MD Sep 24, 2018 18:58
[2018-09-24] MEDS ORDERED: ACETAMINOPHEN 325 MG TAB PO PRN (19:00)
[2018-09-24 19:16] VITALS: BP 150/82; PULSE 81; RESP 16
[2018-09-24] MEDS: LACTOBACILLUS RHAMNOSUS CAP PO SCH (21:12)
[2018-09-25] MEDS: oxyCODONE 15 MG TAB PO PRN ×5 (01:11→23:41)
[2018-09-25 01:18] VITALS: BP 136/70; PULSE 76; RESP 16
[2018-09-25] MEDS: HYDROmorphONE 2 MG/ML SYG IV PRN ×5 (03:05→20:25)
[2018-09-25 08:30] VITALS: BP 135/89; PULSE 82; RESP 18
[2018-09-25] MEDS: LACTOBACILLUS RHAMNOSUS CAP PO SCH ×2 (08:51→20:25)
[2018-09-25] MEDS: SERTRALINE 50 MG TAB PO SCH (08:51)
[2018-09-25] MEDS: FAMOTIDINE 20 MG TAB PO SCH (08:51)
[2018-09-25] MEDS: ENOXAPARIN 30 MG/0.3 ML SYG SC SCH (08:58)
--- NOTE | 2018-09-25 14:11 | DS ---
Date/Time of Note Date/Time of Note DATE: 09/25/18 TIME: 14:07 Discharge Summary Admission/Discharge Info Admit Date/Time Sep 23, 2018 at 11:28 Discharge Date/Time Patient Condition: Stable Consults Dr Blake Douglas Procedures CT right elbow IMPRESSION: Acute, comminuted, mildly displaced intra-articular olecranon fracture with up to 1.5 cm of fracture fragment displacement. Prominent soft tissue swelling and moderate sized joint effusion. R-Noe Sierra, Physician Date Time Testicular ultrasound IMPRESSION: 1. Left-sided varicocele. 2. Symmetrically normal testes and epididymi. Hx of Present Illness 53-year-old gentleman who fell off his wheelchair onto his right arm. Hospital Course Hospitalist coverage/hospital course Assessment and plan -Seen by orthopedic surgery pain. Underwent ORIF. NWB, stable and fit for discharge to SNF due to deconditioning. Seen by urology for concern of testicular pain. No evidence of acute process. May have had chronic epididymitis. 1. Rt elbow fracture status post ORIF. Stable, nonweightbearing, discharge to snf if he qualifies 2. Right BKA status stable, observe 3. Chronic debility wheelchair status 4. Testicular pain appears benign. This stable observed. Left varicocele. Possible history of bilateral epididymitis 5. Hepatitis C viremia 6. Chronic major depression 7. History of cervical myelopathy Home Meds Active Scripts Amoxicillin/Potassium Clav (Amox-Clav 875-125 mg Tablet) 875-125 mg Tab, 1 TAB PO BID, #10 TAB Prov:AYUSH BENTLEY 09/19/18 Methylprednisolone* (Medrol* DOSE PACK) 4 Mg/Dose-Pack Tab.ds.pk, 4 MG PO . DIRECTED, #1 PACKET Prov:AYUSH BENTLEY 09/19/18 Albuterol Sulfate* (Albuterol Sulfate* Neb) 0.083%-3 Ml Neb, 2.5 MG NEB Q6HWA RESP THERAPY for 2 Days, #8 DOSE Prov:AYUSH BENTLEY 09/19/18 Reported Medications Cyclobenzaprine Hcl* (Cyclobenzaprine Hcl*) 10 Mg Tablet, 10 MG PO BID, #60 TAB 09/23/18 Oxycodone Hcl* (IR) (Roxicodone*) 5 Mg Tab, 5 MG PO DAILY PRN for PAIN, TAB 09/23/18 Sertraline Hcl* (Sertraline Hcl*) 25 Mg Tablet, 25 MG PO DAILY, #30 TAB 09/18/18 Naproxen* (Naproxen*) 500 Mg Tablet, 500 MG PO BID PRN for INFLAMATION, TAB 09/18/18 Discontinued Reported Medications Folic Acid* (Folic Acid*) 1 Mg Tablet, 1 MG PO DAILY, TAB 09/18/18 Metoprolol Tartrate* (Lopressor*) 50 Mg Tab, 50 MG PO BID, #60 TAB 09/18/18 Discontinued Scripts Diclofenac Sodium (Diclo Gel) 1 Each Kit, 1 EACH TP Q6H PRN for PAIN, #60 GM Prov:AYUSH BENTLEY . 09/19/18 Nebulizer (ALTERA NEBULIZER) 1 Each Each, EACH MC Q4H WHILE AWAKE, #1 Prov:AYUSH BENTLEY . 09/19/18 Lactobacillus Acidophilus* (Lactinex*) 1 Tab Chew, 1 TAB PO BID, #20 TAB Prov:AYUSH BENTLEY . 09/19/18 Docusate Sodium* (Colace*) 100 Mg Capsule, 100 MG PO Q12H, #60 CAP 1 Refill Prov:AYUSH BENTLEY . 09/19/18 Hydrocodone Bit-Acetaminophen (Hydrocodone Bit-APAP) 5-325MG Tablet, 1 TAB PO Q4H PRN for PAIN, #30 TAB Prov:MAGALI DARBY 09/06/17 Ferrous Sulfate* (Ferrous Sulfate*) 325 Mg Tabec, 325 MG PO BID for 30 Days, TAB Prov:MAGALI DARBY 09/06/17 Spironolactone* (Aldactone*) 50 Mg Tablet, 50 MG PO DAILY, #30 TAB HOLD IF SBP BELOW 110 OR HR<60 Prov:MAGALI DARBY 09/06/17 Furosemide* (Lasix*) 20 Mg Tablet, 20 MG PO DAILY for 30 Days, TAB Prov:MAGALI DARBY 2/21/18 [Vancomycin Oral Syringe] 50 MG/ML SOLN No Conflict Check, 250 MG PO Q6 for 20 Days Prov:MAGALI DARBY 09/06/17 Primary Care Provider Thu Navarro DO Time spent on discharge: < 30 minutes Pending Labs Laboratory Tests Test 09/25/18 04:48 White Blood Count 15.4 10^3/ul (4.8-10.8) Red Blood Count 4.02 10^6/ul (4.70-6.10) Hemoglobin 11.1 g/dl (14.0-18.0) Hematocrit 35.2 % (42.0-52.0) Mean Corpuscular Volume 87.6 fl (82.0-101.0) Mean Corpuscular Hemoglobin 27.6 pg (29.0-33.0) Mean Corpuscular Hemoglobin Concent 31.5 g/dl (32.0-37.0) Red Cell Distribution Width 16.2 % (11.5-14.5) Platelet Count 241 10^3/UL (140-415) Mean Platelet Volume 10.5 fl (7.4-10.4) Immature Granulocytes % 1.500 % (0.001-0.429) Neutrophils % 66.7 % (39.0-77.0) Lymphocytes % 9.9 % (15.0-51.0) Monocytes % 21.6 % (0.0-11.0) Eosinophils % 0.1 % (0.0-7.0) Basophils % 0.2 % (0.0-2.0) Nucleated Red Blood Cells % 0.0 /100WBC (0.0-0.0) Immature Granulocytes # 0.230 10^3/ul (0.0-0.031) Neutrophils # 10.3 10^3/ul (1.6-7.5) Lymphocytes # 1.5 10^3/ul (0.8-2.9) Monocytes # 3.3 10^3/ul (0.3-0.9) Eosinophils # 0.0 10^3/ul (0.0-0.5) Basophils # 0.0 10^3/ul (0.0-0.1) Nucleated Red Blood Cells # 0.0 10^3/ul (0.0-0.0) Sodium Level 136 mmol/L (135-144) Potassium Level 4.1 mmol/L (3.5-5.1) Chloride Level 101 mmol/L (97-110) Carbon Dioxide Level 25 mmol/L (21-31) Anion Gap 10 (5-13) Blood Urea Nitrogen 22 mg/dl (7-20) Creatinine 0.87 mg/dl (0.61-1.24) Est Glomerular Filtrat Rate mL/min > 60 mL/min (>60) Glucose Level 123 mg/dl (70-220) Hemoglobin A1c 5.7 % (0-5.9) Calcium Level 8.9 mg/dl (8.4-10.2) Phosphorus Level 3.9 mg/dl (2.5-4.9) Magnesium Level 1.9 mg/dl (1.7-2.5) Total Bilirubin 0.7 mg/dl (0.2-1.3) Direct Bilirubin 0.00 mg/dl (0.00-0.20) Indirect Bilirubin 0.7 mg/dl (0-1.1) Aspartate Amino Transf (AST/SGOT) 25 IU/L (15-46) Alanine Aminotransferase (ALT/SGPT) 37 IU/L (13-69) Alkaline Phosphatase 161 IU/L (42-121) Total Protein 7.1 g/dl (6.1-8.1) Albumin 3.4 g/dl (3.3-4.9) Globulin 3.70 g/dl (1.3-3.2) Albumin/Globulin Ratio 0.91 Thyroid Stimulating Hormone (TSH) 1.230 MIU/L (0.465-4.680) MITUL RUBALCAVA MD Sep 25, 2018 14:11
--- NOTE | 2018-09-25 14:12 | PDOCDIS ---
Discharge Instructions CONDITION [id number] Patient Condition: [id number] Stable HOME CARE INSTRUCTIONS: [id number] Diet Instructions: [id number] Regular ACTIVITY: [id number] Activity Restrictions: [id number] Slowly Increase Activity Rest between Activity Avoid heavy lifting Do not Drive Do not operate Machinery Do not operate Power Tool Avoid Heavy Housework [id number] Bathing Restrictions: [id number] Shower [id number] Activity Restrictions Comment: [id number] non weight bearing rt arm FOLLOW UP/APPOINTMENTS Follow-up Plan Dr Blake Tucker 2wks Dr Douglas as needed MITUL RUBALCAVA MD Sep 25, 2018 14:12
[2018-09-25] MEDS ORDERED: ENOX30DI2 SC (14:14)
[2018-09-25] MEDS ORDERED: DOCUSATE SODIUM 100 MG CAP PO PRN (14:30)
[2018-09-25 15:02] VITALS: BP 139/87; PULSE 83; RESP 18
--- NOTE | 2018-09-25 20:25 | CONS ---
Consult Date/Type/Reason Admit Date/Time Sep 23, 2018 at 11:28 Initial Consult Date 09/24/18 Type of Consultation: Urology Reason for Consultation Testicular pain Requesting Provider: MITUL RUBALCAVA MD Date/Time of Note DATE: 09/25/18 TIME: 20:23 Subjective Patient complaining of pain from his right elbow. He also still complains of pain in his testicles Objective Vitals Vital Signs Date Temp Pulse Resp B/P (MAP) Pulse Ox O2 O2 Flow FiO2 Time Delivery Rate 09/25/18 98.2 83 18 139/87 95 Room Air 15:02 (104) 09/23/18 10.0 19:59 Intake and Output 09/24/18 09/24/18 09/25/18 1515:00 23:00 07:00 IntakeIntake Total 450 ml 860 ml 480 ml OutputOutput Total 400 ml 500 ml BalanceBalance 450 ml 460 ml -20 ml Exam There is no change in the examination. Results/Medications Result Diagram: 09/25/18 0448 09/25/18 0448 Results 24 hrs Laboratory Tests Test 09/25/18 04:48 White Blood Count 15.4 #H Red Blood Count 4.02 L Hemoglobin 11.1 L Hematocrit 35.2 L Mean Corpuscular Volume 87.6 Mean Corpuscular Hemoglobin 27.6 L Mean Corpuscular Hemoglobin Concent 31.5 L Red Cell Distribution Width 16.2 H Platelet Count 241 Mean Platelet Volume 10.5 H Immature Granulocytes % 1.500 H Neutrophils % 66.7 Lymphocytes % 9.9 L Monocytes % 21.6 H Eosinophils % 0.1 Basophils % 0.2 Nucleated Red Blood Cells % 0.0 Immature Granulocytes # 0.230 H Neutrophils # 10.3 H Lymphocytes # 1.5 Monocytes # 3.3 H Eosinophils # 0.0 Basophils # 0.0 Nucleated Red Blood Cells # 0.0 Sodium Level 136 Potassium Level 4.1 Chloride Level 101 Carbon Dioxide Level 25 Anion Gap 10 Blood Urea Nitrogen 22 H Creatinine 0.87 Est Glomerular Filtrat Rate mL/min > 60 Glucose Level 123 Hemoglobin A1c 5.7 Calcium Level 8.9 Phosphorus Level 3.9 Magnesium Level 1.9 Total Bilirubin 0.7 Direct Bilirubin 0.00 Indirect Bilirubin 0.7 Aspartate Amino Transf (AST/SGOT) 25 Alanine Aminotransferase (ALT/SGPT) 37 Alkaline Phosphatase 161 H Total Protein 7.1 Albumin 3.4 Globulin 3.70 H Albumin/Globulin Ratio 0.91 Thyroid Stimulating Hormone (TSH) 1.230 Home Meds Active Scripts Enoxaparin Sodium* (Enoxaparin Sodium*) 30 Mg/0.3 Ml Syringe, 30 MG SC DAILY for 7 Days Prov:MITUL RUBALCAVA MD 09/25/18 Reported Medications Sertraline Hcl* (Sertraline Hcl*) 25 Mg Tablet, 25 MG PO DAILY, #30 TAB 09/18/18 Discontinued Reported Medications Cyclobenzaprine Hcl* (Cyclobenzaprine Hcl*) 10 Mg Tablet, 10 MG PO BID, #60 TAB 09/23/18 Oxycodone Hcl* (IR) (Roxicodone*) 5 Mg Tab, 5 MG PO DAILY PRN for PAIN, TAB 09/23/18 Naproxen* (Naproxen*) 500 Mg Tablet, 500 MG PO BID PRN for INFLAMATION, TAB 09/18/18 Folic Acid* (Folic Acid*) 1 Mg Tablet, 1 MG PO DAILY, TAB 09/18/18 Metoprolol Tartrate* (Lopressor*) 50 Mg Tab, 50 MG PO BID, #60 TAB 09/18/18 Discontinued Scripts Amoxicillin/Potassium Clav (Amox-Clav 875-125 mg Tablet) 875-125 mg Tab, 1 TAB PO BID, #10 TAB Prov:AYUSH BENTLEY. 09/19/18 Methylprednisolone* (Medrol* DOSE PACK) 4 Mg/Dose-Pack Tab.ds.pk, 4 MG PO . DIRECTED, #1 PACKET Prov:AYUSH BENTLEY. 09/19/18 Albuterol Sulfate* (Albuterol Sulfate* Neb) 0.083%-3 Ml Neb, 2.5 MG NEB Q6HWA RESP THERAPY for 2 Days, #8 DOSE Prov:AYUSH BENTLEY. 09/19/18 Diclofenac Sodium (Diclo Gel) 1 Each Kit, 1 EACH TP Q6H PRN for PAIN, #60 GM Prov:AYUSH BENTLEY. 09/19/18 Nebulizer (ALTERA NEBULIZER) 1 Each Each, EACH MC Q4H WHILE AWAKE, #1 Prov:AYUSH BENTLEY. 09/19/18 Lactobacillus Acidophilus* (Lactinex*) 1 Tab Chew, 1 TAB PO BID, #20 TAB Prov:AYUSH BENTLEY. 09/19/18 Docusate Sodium* (Colace*) 100 Mg Capsule, 100 MG PO Q12H, #60 CAP 1 Refill Prov:AYUSH BENTLEY. 09/19/18 Hydrocodone Bit-Acetaminophen (Hydrocodone Bit-APAP) 5-325MG Tablet, 1 TAB PO Q4H PRN for PAIN, #30 TAB Prov:MAGALI DARBY 09/06/17 Ferrous Sulfate* (Ferrous Sulfate*) 325 Mg Tabec, 325 MG PO BID for 30 Days, TAB Prov:MAGALI DARBY 09/06/17 Spironolactone* (Aldactone*) 50 Mg Tablet, 50 MG PO DAILY, #30 TAB HOLD IF SBP BELOW 110 OR HR<60 Prov:MAGALI DARBY 09/06/17 Furosemide* (Lasix*) 20 Mg Tablet, 20 MG PO DAILY for 30 Days, TAB Prov:MAGALI DARBY 09/06/17 [Vancomycin Oral Syringe] 50 MG/ML SOLN No Conflict Check, 250 MG PO Q6 for 20 Days Prov:MAGALI DARBY 09/06/17 Medications Current Medications IV Flush (NS 3 ml) 3 ml PER PROTOCOL IV ; Start 09/23/18 at 12:00 Ondansetron HCl (Zofran Inj) 4 mg Q6H PRN IV NAUSEA/VOMITING; Start 09/23/18 at 12:00 Sertraline HCl (Zoloft) 25 mg DAILY PO Last administered on 09/25/18at 08:51; Admin Dose 25 MG; Start 09/24/18 at 09:00 Hydromorphone HCl (Dilaudid) 1.5 mg Q4H PRN IV SEVERE PAIN LEVEL 7-10 Last admi nistered on 09/25/18at 14:58; Admin Dose 1.5 MG; Start 09/24/18 at 06:30 Oxycodone HCl (Roxicodone) 5 mg Q4H PRN PO MODERATE PAIN LEVEL 4-6; Start 09/24/18 at 10:30 Oxycodone HCl (Roxicodone) 10 mg Q4H PRN PO MODERATE PAIN LEVEL 4-6; Start 09/24/18 at 10:30 Oxycodone HCl (Roxicodone) 15 mg Q4H PRN PO MODERATE PAIN LEVEL 4-6 Last administered on 09/25/18at 17:17; Admin Dose 15 MG; Start 09/24/18 at 10:30 Famotidine (Pepcid) 20 mg DAILY PO Last administered on 09/25/18at 08:51; Admin Dose 20 MG; Start 09/25/18 at 09:00 Enoxaparin Sodium (Lovenox) 30 mg DAILY SC Last administered on 09/25/18at 0 8:58; Admin Dose 30 MG; Start 09/25/18 at 09:00 Lactobacillus Acidophilus/ Rhamnosus (Culturelle) 1 cap BID PO Last administered on 09/25/18at 08:51; Admin Dose 1 CAP; Start 09/24/18 at 21:00 Acetaminophen (Tylenol Tab) 650 mg Q4H PRN PO MILD PAIN(1-3)OR ELEVATED TEMP; Start 09/24/18 at 19:00 Docusate Sodium (Colace) 200 mg BID PRN PO CONSTIPATION; Start 09/25/18 at 14:30 Albuterol (Ventolin Hfa) 2 puff Q4H RESP THERAPY PRN INH SHORTNESS OF BREATH; Start 09/25/18 at 17:00 Assessment/Plan Hospital Course (Demo Recall) 53-year-old male with comorbidities including hepatitis C, iron deficiency, depression, wheelchair-bound secondary to right below knee amputation, and recent hospitalization for community acquired pneumonia had a mechanical fall with impact to the right upper extremity with resultant right olecranon fracture. He underwent open reduction internal fixation right olecranon fracture and primary repair of triceps tendon. A urological consultation was requested because he has been complaining of pain in his testicles On the exam the testicles appeared to be normal there is no mass and no erythema. He states he did have a lot of enlargement of his scrotum about an year ago and he most likely had bilateral epididymitis and that may be a reason why his testes are little small. The testicular ultrasound was done and showed: The right testicle measures 3.0 x 1.4 x 2.0 cm. The left testicle measures 3.4 x 1.2 x 2.0 cm. There is normal size and echogenicity and morphology bilaterally. There is normal blood flow seen bilaterally. The epididymi are normal. No hydrocele is identified. Left-sided varicocele present. The soft tissues are unremarkable. No mass or cyst or other abnormality is seen The patient's condition is unchanged. He still complaining of pain in his scrotum. I again reassured him that the testicles are free of tumors. MAURO MARTINEZ MD Sep 25, 2018 20:25
[2018-09-25 20:40] VITALS: BP 132/75; PULSE 83; RESP 19
[2018-09-26 02:24] VITALS: BP_SYST 118; BP_SYST 130; BP_DIAS 72; BP_DIAS 82; PULSE 89; RESP 18
[2018-09-26] MEDS: HYDROmorphONE 2 MG/ML SYG IV PRN ×2 (03:19→08:10)
[2018-09-26] MEDS: oxyCODONE 15 MG TAB PO PRN ×4 (04:42→19:51)
[2018-09-26 08:26] VITALS: BP 133/87; PULSE 90; RESP 18
[2018-09-26] MEDS: LACTOBACILLUS RHAMNOSUS CAP PO SCH ×2 (08:48→21:28)
[2018-09-26] MEDS: SERTRALINE 50 MG TAB PO SCH (08:48)
[2018-09-26] MEDS: FAMOTIDINE 20 MG TAB PO SCH (08:48)
[2018-09-26] MEDS: ENOXAPARIN 30 MG/0.3 ML SYG SC SCH (08:50)
[2018-09-26 14:34] VITALS: BP 124/83; PULSE 88; RESP 18
--- NOTE | 2018-09-26 14:55 | PN ---
Date/Time of Note Date/Time of Note DATE: 09/26/18 TIME: 14:52 Assessment/Plan VTE Prophylaxis Risk score (from Nsg)>0 risk: 3 SCD applied (from Nsg): No SCD contraindicated: low risk/ambulating Pharmacological prophylaxis: LMWH Lines/Catheters IV Catheter Type (from Nrsg): Peripheral IV Assessment/Plan Hospital Course Hospitalist coverage/hospital course Assessment and plan -Seen by orthopedic surgery pain. Underwent ORIF. NWB, stable and fit for discharge to SNF due to deconditioning. Seen by urology for concern of testicular pain. No evidence of acute process. May have had chronic epididymitis. A/P 1. Rt elbow fracture sp ORIF. stable, nwb, dc to snf, if he qualifies 2. Right BKA status stable, observe 3. Chronic debility wheelchair status 4. Testicular pain appears benign. This stable observed. Left varicocele. Possible history of bilateral epididymitis 5. Hepatitis C viremia 6. Chronic major depression 7. History of cervical myelopathy 8. Ftt, stable discharge to snf once bed av Subjective: Moderate ongoing pain. No fever dyspnea. Tolerating diet cough with no expectoration. Participated with PT. Objective: Vital signs stable Physical exam No pallor Regular Clear some upper airway vocal wheeze no tachypnea Bs positive nt nd no RRG No edema; right arm in sling. Right BKA status noted Result Diagram: 09/25/1844709/25/18447 Exam/Review of Systems Exam Vitals Vital Signs Date Temp Pulse Resp B/P (MAP) Pulse Ox O2 O2 Flow FiO2 Time Delivery Rate 09/26/18 98.8 88 18 124/83 95 14:34 (97) 09/25/18 Room Air 15:02 09/23/18 10.0 19:59 Intake and Output 09/25/18 09/25/18 09/26/18 1515:00 23:00 07:00 IntakeIntake Total 960 ml 800 ml OutputOutput Total 700 ml 400 ml BalanceBalance 260 ml 400 ml Medications Medication Current Medications IV Flush (NS 3 ml) 3 ml PER PROTOCOL IV ; Start 09/23/18 at 12:00 Ondansetron HCl (Zofran Inj) 4 mg Q6H PRN IV NAUSEA/VOMITING; Start 09/23/18 at 12:00 Sertraline HCl (Zoloft) 25 mg DAILY PO Last administered on 09/26/18 08:48; Admin Dose 25 MG; Start 09/24/18 at 09:00 Hydromorphone HCl (Dilaudid) 1.5 mg Q4H PRN IV SEVERE PAIN LEVEL 7-10 Last administered on 09/26/18 08:10; Admin Dose 1.5 MG; Start 09/24/18 at 06:30 Oxycodone HCl (Roxicodone) 5 mg Q4H PRN PO MODERATE PAIN LEVEL 4-6; Start 09/24/18 at 10:30 Oxycodone HCl (Roxicodone) 10 mg Q4H PRN PO MODERATE PAIN LEVEL 4-6; Start 09/24/18 at 10:30 Oxycodone HCl (Roxicodone) 15 mg Q4H PRN PO MODERATE PAIN LEVEL 4-6 Last administered on 09/26/18 10:20; Admin Dose 15 MG; Start 09/24/18 at 10:30 Famotidine (Pepcid) 20 mg DAILY PO Last administered on 09/26/18 08:48; Admin Dose 20 MG; Start 09/25/18 at 09:00 Enoxaparin Sodium (Lovenox) 30 mg DAILY SC Last administered on 09/26/18 08:50; Admin Dose 30 MG; Start 09/25/18 at 09:00 Lactobacillus Acidophilus/ Rhamnosus (Culturelle) 1 cap BID PO Last administered on 09/26/18 08:48; Admin Dose 1 CAP; Start 09/24/18 at 21:00 Acetaminophen (Tylenol Tab) 650 mg Q4H PRN PO MILD PAIN(1-3)OR ELEVATED TEMP; Start 09/24/18 at 19:00 Docusate Sodium (Colace) 200 mg BID PRN PO CONSTIPATION; Start 09/25/18 at 14:30 Albuterol (Ventolin Hfa) 2 puff Q4H RESP THERAPY PRN INH SHORTNESS OF BREATH; Start 09/25/18 at 17:00 MITUL RUBALCAVA MD Sep 26, 2018 14:55
[2018-09-26] MEDS ORDERED: BISACODYL (EC) 5 MG TAB PO PRN (15:00)
[2018-09-26] MEDS ORDERED: BISACODYL 10 MG SUPP PR PRN (15:00)
[2018-09-26] MEDS: HYDROmorphONE 1 MG/ML SYG IV PRN ×2 (17:36→23:58)
[2018-09-26 19:20] VITALS: BP 119/80; PULSE 87; RESP 20
[2018-09-27 02:10] VITALS: BP 134/84; PULSE 90; RESP 18
[2018-09-27] MEDS: oxyCODONE 15 MG TAB PO PRN ×4 (03:53→22:11)
[2018-09-27] MEDS: HYDROmorphONE 1 MG/ML SYG IV PRN ×3 (06:59→18:58)
[2018-09-27 07:33] VITALS: BP 133/89; PULSE 85; RESP 18
[2018-09-27] MEDS: LACTOBACILLUS RHAMNOSUS CAP PO SCH ×2 (09:02→20:50)
[2018-09-27] MEDS: SERTRALINE 50 MG TAB PO SCH (09:03)
[2018-09-27] MEDS: FAMOTIDINE 20 MG TAB PO SCH (09:03)
[2018-09-27] MEDS: ENOXAPARIN 30 MG/0.3 ML SYG SC SCH (09:03)
--- NOTE | 2018-09-27 11:46 | PN ---
Date/Time of Note Date/Time of Note DATE: 09/27/18 TIME: 11:45 Assessment/Plan VTE Prophylaxis Risk score (from Nsg)>0 risk: 3 SCD applied (from Nsg): Yes SCD contraindicated: low risk/ambulating Pharmacological prophylaxis: LMWH Lines/Catheters IV Catheter Type (from Nrsg): Saline Lock Urinary Cath still in place: No Assessment/Plan Hospital Course Hospitalist coverage/hospital course Assessment and plan -Seen by orthopedic surgery pain. Underwent ORIF. NWB, stable and fit for discharge to SNF due to deconditioning. Seen by urology for concern of testicular pain. No evidence of acute process. May have had chronic epididymitis. A/P 1. Rt elbow fracture sp ORIF. stable, nwb, dc to snf, if he qualifies 2. Right BKA status stable, observe 3. Chronic debility wheelchair status 4. Testicular pain appears benign. This stable observed. Left varicocele. Possible history of bilateral epididymitis 5. Hepatitis C viremia 6. Chronic major depression 7. History of cervical myelopathy 8. Ftt, stable discharge to snf once bed elbow 9. Cough low-grade fever likely due to atelectasis/deconditioning S: 09/26 moderate ongoing pain. No fever dyspnea. Tolerating diet cough with no expectoration. Participated with PT. 09/27: No events O: Vital signs stable Physical exam No pallor Reg Ctab no tachypnea Bs positive nt nd no RRG No edema; right arm in sling. Rt BKA status noted Result Diagram: 09/25/1844709/25/18447 Exam/Review of Systems Exam Vitals Vital Signs Date Temp Pulse Resp B/P (MAP) Pulse Ox O2 O2 Flow FiO2 Time Delivery Rate 09/27/18 98.6 85 18 133/89 91 07:33 (104) 09/25/18 Room Air 15:02 09/23/18 10.0 19:59 Intake and Output 09/26/18 09/26/18 09/27/18 1515:00 23:00 07:00 IntakeIntake Total 720 ml 630 ml OutputOutput Total 700 ml 200 ml BalanceBalance 20 ml 430 ml Medications Medication Current Medications IV Flush (NS 3 ml) 3 ml PER PROTOCOL IV ; Start 09/23/18 at 12:00 Ondansetron HCl (Zofran Inj) 4 mg Q6H PRN IV NAUSEA/VOMITING; Start 09/23/18 at 12:00 Sertraline HCl (Zoloft) 25 mg DAILY PO Last administered on 09/27/18at 09:03; Admin Dose 25 MG; Start 09/24/18 at 09:00 Oxycodone HCl (Roxicodone) 5 mg Q4H PRN PO MODERATE PAIN LEVEL 4-6; Start 09/24/18 at 10:30 Oxycodone HCl (Roxicodone) 10 mg Q4H PRN PO MODERATE PAIN LEVEL 4-6; Start 09/24/18 at 10:30 Oxycodone HCl (Roxicodone) 15 mg Q4H PRN PO MODERATE PAIN LEVEL 4-6 Last administered on 09/27/18at 09:02; Admin Dose 15 MG; Start 09/24/18 at 10:30 Famotidine (Pepcid) 20 mg DAILY PO Last administered on 09/27/18at 09:03; Admin Dose 20 MG; Start 09/25/18 at 09:00 Enoxaparin Sodium (Lovenox) 30 mg DAILY SC Last administered on 09/27/18at 09:03; Admin Dose 30 MG; Start 09/25/18 at 09:00 Lactobacillus Acidophilus/ Rhamnosus (Culturelle) 1 cap BID PO Last administered on 09/27/18at 09:02; Admin Dose 1 CAP; Start 09/24/18 at 21:00 Acetaminophen (Tylenol Tab) 650 mg Q4H PRN PO MILD PAIN(1-3)OR ELEVATED TEMP; Start 09/24/18 at 19:00 Docusate Sodium (Colace) 200 mg BID PRN PO CONSTIPATION; Start 09/25/18 at 14:30 Albuterol (Ventolin Hfa) 2 puff Q4H RESP THERAPY PRN INH SHORTNESS OF BREATH; Start 09/25/18 at 17:00 Bisacodyl (Dulcolax) 10 mg DAILY PRN PO CONSTIPATION Last administered on 09/26/18at 15:25; Admin Dose 10 MG; Start 09/26/18 at 15:00 Bisacodyl (Dulcolax Supp) 10 mg DAILY PRN [place] CONSTIPATION; Start 09/26/18 at 15:00 Hydromorphone HCl (Dilaudid) 1 mg Q6 PRN IV SEVERE PAIN LEVEL 7-10 Last administered on 09/27/18at 06:59; Admin Dose 1 MG; Start 09/26/18 at 15:30 MITUL RUBALCAVA MD Sep 27, 2018 11:46
[2018-09-27 14:14] VITALS: BP 127/82; PULSE 85; RESP 18
[2018-09-27 20:09] VITALS: BP 107/73; PULSE 101; RESP 16
[2018-09-28] MEDS: HYDROmorphONE 1 MG/ML SYG IV PRN ×4 (00:32→19:53)
[2018-09-28 02:20] VITALS: BP 127/63; PULSE 99; RESP 16
[2018-09-28] MEDS: oxyCODONE 15 MG TAB PO PRN ×5 (02:34→21:28)
[2018-09-28 07:49] VITALS: BP 118/71; PULSE 85; RESP 18
[2018-09-28] MEDS: LACTOBACILLUS RHAMNOSUS CAP PO SCH ×2 (08:31→19:53)
[2018-09-28] MEDS: SERTRALINE 50 MG TAB PO SCH (08:31)
[2018-09-28] MEDS: FAMOTIDINE 20 MG TAB PO SCH (08:32)
[2018-09-28] MEDS: ENOXAPARIN 40 MG/0.4 ML SYG SC SCH (08:34)
[2018-09-28 14:00] VITALS: BP 120/66; PULSE 80; RESP 18
[2018-09-28 20:30] VITALS: BP 149/74; PULSE 89; RESP 19
--- NOTE | 2018-09-28 21:21 | PN ---
Date/Time of Note Date/Time of Note DATE: 09/28/18 TIME: 21:20 Assessment/Plan VTE Prophylaxis Risk score (from Nsg)>0 risk: 3 SCD applied (from Nsg): Yes SCD contraindicated: low risk/ambulating Pharmacological prophylaxis: LMWH Lines/Catheters IV Catheter Type (from Nrsg): Saline Lock Urinary Cath still in place: No Assessment/Plan Hospital Course Hospitalist coverage/hospital course Assessment and plan -Seen by orthopedic surgery pain. Underwent ORIF. NWB, stable and fit for discharge to SNF due to deconditioning. Seen by urology for concern of testicular pain. No evidence of acute process. May have had chronic epididymitis. A/P 1. Rt elbow fracture sp ORIF. stable, nwb, dc to snf, if he qualifies 2. Right BKA status stable, observe 3. Chronic debility wheelchair status 4. Testicular pain appears benign/ stable, observe. Left varicocele. Possible history of bilateral epididymitis 5. Hepatitis C viremia 6. Chronic major depression 7. History of cervical myelopathy 8. Ftt, stable discharge to snf once bed elbow 9. Cough low-grade fever likely due to atelectasis/deconditioning, possible bronchitis; cont aerosols. will add azithro/ pred S: 09/26 moderate ongoing pain. No fever dyspnea. Tolerating diet cough with no expectoration. Participated with PT. 09/27: No events 09/28: cough, green expectoration. no fever. pain all over O: Vital signs stable Physical exam No pallor Reg no tachypnea, scattering wheeze Bs positive nt nd no RRG No edema; right arm in sling; some ecchymosis; no warmth. Rt BKA status noted Result Diagram: 09/28/18 0436 09/28/18 0436 Results 24hrs Laboratory Tests Test 09/28/18 04:36 White Blood Count 12.7 H Red Blood Count 3.60 L Hemoglobin 10.3 L Hematocrit 31.9 L Mean Corpuscular Volume 88.6 Mean Corpuscular Hemoglobin 28.6 L Mean Corpuscular Hemoglobin Concent 32.3 Red Cell Distribution Width 16.7 H Platelet Count 246 Mean Platelet Volume 10.2 Immature Granulocytes % 0.800 H Neutrophils % 67.2 Lymphocytes % 14.6 L Monocytes % 13.3 H Eosinophils % 3.9 Basophils % 0.2 Nucleated Red Blood Cells % 0.0 Immature Granulocytes # 0.100 H Neutrophils # 8.6 H Lymphocytes # 1.9 Monocytes # 1.7 H Eosinophils # 0.5 Basophils # 0.0 Nucleated Red Blood Cells # 0.0 Sodium Level 132 L Potassium Level 4.0 Chloride Level 98 Carbon Dioxide Level 28 Anion Gap 6 Blood Urea Nitrogen 14 Creatinine 0.76 Est Glomerular Filtrat Rate mL/min > 60 Glucose Level 105 Calcium Level 8.4 Phosphorus Level 3.3 Magnesium Level 1.7 Total Bilirubin 0.8 Direct Bilirubin 0.00 Indirect Bilirubin 0.8 Aspartate Amino Transf (AST/SGOT) 39 Alanine Aminotransferase (ALT/SGPT) 39 Alkaline Phosphatase 179 H Total Protein 6.6 Albumin 3.2 L Globulin 3.40 H Albumin/Globulin Ratio 0.94 Exam/Review of Systems Exam Vitals Vital Signs Date Temp Pulse Resp B/P (MAP) Pulse Ox O2 O2 Flow FiO2 Time Delivery Rate 09/28/18 99.1 89 19 149/74 92 20:30 (99) 09/28/18 Room Air 14:00 Intake and Output 09/27/18 09/27/18 09/28/18 1515:00 23:00 07:00 IntakeIntake Total 300 ml 680 ml OutputOutput Total 300 ml 400 ml BalanceBalance 0 ml 280 ml Results Results 24hrs Laboratory Tests Test 09/28/18 04:36 White Blood Count 12.7 H Red Blood Count 3.60 L Hemoglobin 10.3 L Hematocrit 31.9 L Mean Corpuscular Volume 88.6 Mean Corpuscular Hemoglobin 28.6 L Mean Corpuscular Hemoglobin Concent 32.3 Red Cell Distribution Width 16.7 H Platelet Count 246 Mean Platelet Volume 10.2 Immature Granulocytes % 0.800 H Neutrophils % 67.2 Lymphocytes % 14.6 L Monocytes % 13.3 H Eosinophils % 3.9 Basophils % 0.2 Nucleated Red Blood Cells % 0.0 Immature Granulocytes # 0.100 H Neutrophils # 8.6 H Lymphocytes # 1.9 Monocytes # 1.7 H Eosinophils # 0.5 Basophils # 0.0 Nucleated Red Blood Cells # 0.0 Sodium Level 132 L Potassium Level 4.0 Chloride Level 98 Carbon Dioxide Level 28 Anion Gap 6 Blood Urea Nitrogen 14 Creatinine 0.76 Est Glomerular Filtrat Rate mL/min > 60 Glucose Level 105 Calcium Level 8.4 Phosphorus Level 3.3 Magnesium Level 1.7 Total Bilirubin 0.8 Direct Bilirubin 0.00 Indirect Bilirubin 0.8 Aspartate Amino Transf (AST/SGOT) 39 Alanine Aminotransferase (ALT/SGPT) 39 Alkaline Phosphatase 179 H Total Protein 6.6 Albumin 3.2 L Globulin 3.40 H Albumin/Globulin Ratio 0.94 Medications Medication Current Medications IV Flush (NS 3 ml) 3 ml PER PROTOCOL IV ; Start 09/23/18 at 12:00 Ondansetron HCl (Zofran Inj) 4 mg Q6H PRN IV NAUSEA/VOMITING; Start 09/23/18 at 12:00 Sertraline HCl (Zoloft) 25 mg DAILY PO Last administered on 09/28/18at 08:31; Admin Dose 25 MG; Start 09/24/18 at 09:00 Oxycodone HCl (Roxicodone) 5 mg Q4H PRN PO MODERATE PAIN LEVEL 4-6; Start 09/24 at 10:30 Oxycodone HCl (Roxicodone) 10 mg Q4H PRN PO MODERATE PAIN LEVEL 4-6; Start 09/24/18 at 10:30 Oxycodone HCl (Roxicodone) 15 mg Q4H PRN PO MODERATE PAIN LEVEL 4-6 Last administered on 09/28/18at 16:36; Admin Dose 15 MG; Start 09/24/18 at 10:30 Famotidine (Pepcid) 20 mg DAILY PO Last administered on 09/28/18at 08:32; Admin Dose 20 MG; Start 09/25/18 at 09:00 Lactobacillus Acidophilus/ Rhamnosus (Culturelle) 1 cap BID PO Last administered on 09/28/18at 19:53; Admin Dose 1 CAP; Start 09/24/18 at 21:00 Acetaminophen (Tylenol Tab) 650 mg Q4H PRN PO MILD PAIN(1-3)OR ELEVATED TEMP; Start 09/24/18 at 19:00 Docusate Sodium (Colace) 200 mg BID PRN PO CONSTIPATION; Start 09/25/18 at 14:30 Albuterol (Ventolin Hfa) 2 puff Q4H RESP THERAPY PRN INH SHORTNESS OF BREATH; Start 09/25/18 at 17:00 Bisacodyl (Dulcolax) 10 mg DAILY PRN PO CONSTIPATION Last administered on 09/26/18at 15:25; Admin Dose 10 MG; Start 09/26/18 at 15:00 Bisacodyl (Dulcolax Supp) 10 mg DAILY PRN [place] CONSTIPATION; Start 09/26/18 at 15:00 Hydromorphone HCl (Dilaudid) 1 mg Q6 PRN IV SEVERE PAIN LEVEL 7-10 Last admin istered on 09/28/18at 19:53; Admin Dose 1 MG; Start 09/26/18 at 15:30 Enoxaparin Sodium (Lovenox) 40 mg DAILY SC Last administered on 09/28/18at 08:34; Admin Dose 40 MG; Start 09/28/18 at 09:00 MITUL RUBALCAVA MD Sep 28, 2018 21:21
[2018-09-28] MEDS: predniSONE 20 MG TAB PO SCH (21:53)
[2018-09-28] MEDS: AZITHROMYCIN 250 MG TAB PO SCH (21:53)
[2018-09-29] MEDS: HYDROmorphONE 1 MG/ML SYG IV PRN ×3 (02:08→17:26)
[2018-09-29 02:41] VITALS: BP 119/69; PULSE 100; RESP 18
[2018-09-29] MEDS: oxyCODONE 15 MG TAB PO PRN ×4 (05:26→22:50)
[2018-09-29 07:45] VITALS: BP 112/78; PULSE 105; RESP 18
[2018-09-29] MEDS: FAMOTIDINE 20 MG TAB PO SCH (08:33)
[2018-09-29] MEDS: predniSONE 20 MG TAB PO SCH (08:33)
[2018-09-29] MEDS: SERTRALINE 50 MG TAB PO SCH (08:34)
[2018-09-29] MEDS: LACTOBACILLUS RHAMNOSUS CAP PO SCH ×2 (08:35→20:36)
[2018-09-29] MEDS: ENOXAPARIN 40 MG/0.4 ML SYG SC SCH (08:41)
[2018-09-29 14:00] VITALS: BP 123/81; PULSE 102; RESP 18
--- NOTE | 2018-09-29 16:40 | PN ---
Date/Time of Note Date/Time of Note DATE: 09/29/18 TIME: 16:40 Assessment/Plan VTE Prophylaxis Risk score (from Nsg)>0 risk: 2 SCD applied (from Nsg): Yes Pharmacological prophylaxis: LMWH Lines/Catheters IV Catheter Type (from Nrsg): Saline Lock Urinary Cath still in place: No Assessment/Plan Hospital Course Hospitalist coverage/hospital course Assessment and plan -Seen by orthopedic surgery pain. Underwent ORIF. NWB, stable and fit for discharge to SNF due to deconditioning. Seen by urology for concern of testicular pain. No evidence of acute process. May have had chronic epididymitis. A/P 1. Rt elbow fracture sp ORIF. stable, nwb, dc to snf, if he qualifies 2. Right BKA status stable, observe 3. Chronic debility wheelchair status 4. Testicular pain appears benign/ stable, observe. Left varicocele. Possible history of bilateral epididymitis 5. Hepatitis C viremia 6. Chronic major depression 7. History of cervical myelopathy 8. Ftt, stable discharge to snf once bed elbow 9. Cough low-grade fever likely due to atelectasis/deconditioning, possible bronchitis; cont aerosols. will add azithro/ pred S: 09/26 moderate ongoing pain. No fever dyspnea. Tolerating diet cough with no expectoration. Participated with PT. 09/27: No events 09/28: cough, green expectoration. no fever. pain all over 09/29: No events. Patient found to have CBD oil in his room O: Vital signs stable Physical exam No pallor Reg no tachypnea, scattering wheeze Bs positive nt nd no RRG No edema; right arm in sling; some ecchymosis; no warmth. Rt BKA status noted Result Diagram: 09/28/18 0436 09/28/18 0436 Exam/Review of Systems Exam Vitals Vital Signs Date Temp Pulse Resp B/P (MAP) Pulse Ox O2 O2 Flow FiO2 Time Delivery Rate 09/29/18 98.1 102 18 123/81 99 14:00 (95) 09/28/18 Room Air 14:00 Intake and Output 09/28/18 09/28/18 09/29/18 1515:00 23:00 07:00 IntakeIntake Total 1230 ml 180 ml OutputOutput Total 400 ml BalanceBalance 1230 ml -220 ml Medications Medication Current Medications IV Flush (NS 3 ml) 3 ml PER PROTOCOL IV ; Start 09/23/18 at 12:00 Ondansetron HCl (Zofran Inj) 4 mg Q6H PRN IV NAUSEA/VOMITING; Start 09/23/18 at 12:00 Sertraline HCl (Zoloft) 25 mg DAILY PO Last administered on 09/29/18at 08:34; Admin Dose 25 MG; Start 09/24/18 at 09:00 Oxycodone HCl (Roxicodone) 5 mg Q4H PRN PO MODERATE PAIN LEVEL 4-6; Start 09/24/18 at 10:30 Oxycodone HCl (Roxicodone) 10 mg Q4H PRN PO MODERATE PAIN LEVEL 4-6; Start 09/24/18 at 10:30 Oxycodone HCl (Roxicodone) 15 mg Q4H PRN PO MODERATE PAIN LEVEL 4-6 Last administered on 09/29/18at 11:55; Admin Dose 15 MG; Start 09/24/18 at 10:30 Famotidine (Pepcid) 20 mg DAILY PO Last administered on 09/29/18at 08:33; Admin Dose 20 MG; Start 09/25/18 at 09:00 Lactobacillus Acidophilus/ Rhamnosus (Culturelle) 1 cap BID PO Last administered on 09/29/18at 08:35; Admin Dose 1 CAP; Start 09/24/18 at 21:00 Acetaminophen (Tylenol Tab) 650 mg Q4H PRN PO MILD PAIN(1-3)OR ELEVATED TEMP; Start 09/24/18 at 19:00 Docusate Sodium (Colace) 200 mg BID PRN PO CONSTIPATION; Start 09/25/18 at 14:30 Albuterol (Ventolin Hfa) 2 puff Q4H RESP THERAPY PRN INH SHORTNESS OF BREATH; Start 09/25/18 at 17:00 Bisacodyl (Dulcolax) 10 mg DAILY PRN PO CONSTIPATION Last administered on 09/26/18at 15:25; Admin Dose 10 MG; Start 09/26/18 at 15:00 Bisacodyl (Dulcolax Supp) 10 mg DAILY PRN [place] CONSTIPATION; Start 09/26/18 at 15:00 Hydromorphone HCl (Dilaudid) 1 mg Q6 PRN IV SEVERE PAIN LEVEL 7-10 Last administered on 09/29/18 09:34; Admin Dose 1 MG; Start 09/26/18 at 15:30 Enoxaparin Sodium (Lovenox) 40 mg DAILY SC Last administered on 09/29/18at 08:41; Admin Dose 40 MG; Start 09/28/18 at 09:00 Prednisone (Prednisone) 60 mg DAILY PO Last administered on 09/29/18at 08:33; Admin Dose 60 MG; Start 09/28/18 at 21:30 Azithromycin (Zithromax) 250 mg DAILY@2130 PO Last administered on 09/28/18at 21:53; Admin Dose 250 MG; Start 09/28/18 at 21:30; Stop 09/30/18 at 23:00 MITUL RUBALCAVA MD Sep 29, 2018 16:40
[2018-09-29 20:31] VITALS: BP 150/80; PULSE 88; RESP 20
[2018-09-29] MEDS: AZITHROMYCIN 250 MG TAB PO SCH (20:36)
[2018-09-30] MEDS: HYDROmorphONE 1 MG/ML SYG IV PRN ×4 (00:46→19:01)
[2018-09-30 02:09] VITALS: BP 148/75; PULSE 85; RESP 20
[2018-09-30] MEDS: oxyCODONE 15 MG TAB PO PRN ×4 (03:10→20:57)
[2018-09-30 07:55] VITALS: BP 144/70; PULSE 72; RESP 18
[2018-09-30] MEDS: ALBUTEROL HFA 8 GM INHALER INH PRN ×2 (08:03→22:10)
[2018-09-30] MEDS: LACTOBACILLUS RHAMNOSUS CAP PO SCH ×2 (10:08→20:57)
[2018-09-30] MEDS: SERTRALINE 50 MG TAB PO SCH (10:08)
[2018-09-30] MEDS: FAMOTIDINE 20 MG TAB PO SCH (10:08)
[2018-09-30] MEDS: predniSONE 20 MG TAB PO SCH (10:08)
[2018-09-30] MEDS: CEPASTAT LOZENGE MT PRN (10:09)
[2018-09-30] MEDS: ENOXAPARIN 40 MG/0.4 ML SYG SC SCH (10:16)
[2018-09-30 14:25] VITALS: BP 149/70; PULSE 71; RESP 18
--- NOTE | 2018-09-30 17:51 | PN ---
Date/Time of Note Date/Time of Note DATE: 09/30/18 TIME: 17:49 Assessment/Plan VTE Prophylaxis Risk score (from Nsg)>0 risk: 4 SCD applied (from Nsg): Yes SCD contraindicated: low risk/ambulating Pharmacological prophylaxis: LMWH Lines/Catheters IV Catheter Type (from Nrsg): Saline Lock Urinary Cath still in place: No Assessment/Plan Hospital Course Hospitalist coverage/hospital course Assessment and plan -Seen by orthopedic surgery pain. Underwent ORIF. NWB, stable and fit for discharge to SNF due to deconditioning. Seen by urology for concern of testicular pain. No evidence of acute process. May have had chronic epididymitis. Occasional cough dyspnea I heard some wheezing under the week. He is improving with supportive care for bronchitis. He is using CBD oil topically for his pain. A/P 1. Rt elbow fracture sp ORIF. pod ~ 6, stable, nwb, dc to snf, if he qualifies 2. Right BKA status stable, observe 3. Chronic debility wheelchair status 4. Testicular pain appears benign/ stable, observe. Left varicocele. Possible history of bilateral epididymitis 5. Hepatitis C viremia 6. Chronic major depression 7. History of cervical myelopathy 8. Ftt, stable discharge to snf once bed available 9. Cough low-grade fever likely due to atelectasis/deconditioning, bronchitis; cont aerosols. added azithro/ pred 10. Leukocytosis probably due to prednisone. 09/30: S: 09/26 moderate ongoing pain. No fever dyspnea. Tolerating diet cough with no expectoration. Participated with PT. 09/27: No events 09/28: cough, green expectoration. no fever. pain all over 09/29: No events. Patient found to have CBD oil in his room 09/30: States he has shortness of breath and feels like he is going to faint. No hypoxia no focal deficits. Always requesting further narcotics. O: Vital signs stable Physical exam No pallor Reg no tachypnea, less wheezing Bs positive nt nd no RRG No edema; right arm in sling; some ecchymosis; no warmth. Rt BKA status noted Result Diagram: 09/28/18 0436 09/28/18 0436 Exam/Review of Systems Exam Vitals Vital Signs Date Temp Pulse Resp B/P (MAP) Pulse Ox O2 O2 Flow FiO2 Time Delivery Rate 09/30/18 99.0 71 18 149/70 95 14:25 (96) 09/28/18 Room Air 14:00 Intake and Output 09/29/18 09/29/18 09/30/18 1515:00 23:00 07:00 IntakeIntake Total 700 ml 600 ml 800 ml OutputOutput Total 1200 ml 600 ml BalanceBalance -500 ml 600 ml 200 ml Medications Medication Current Medications IV Flush (NS 3 ml) 3 ml PER PROTOCOL IV ; Start 09/23/18 at 12:00 Ondansetron HCl (Zofran Inj) 4 mg Q6H PRN IV NAUSEA/VOMITING; Start 09/23/18 at 12:00 Sertraline HCl (Zoloft) 25 mg DAILY PO Last administered on 09/30/18at 10:08; Admin Dose 25 MG; Start 09/24/18 at 09:00 Oxycodone HCl (Roxicodone) 5 mg Q4H PRN PO MODERATE PAIN LEVEL 4-6; Start 09/24/18 at 10:30 Oxycodone HCl (Roxicodone) 10 mg Q4H PRN PO MODERATE PAIN LEVEL 4-6; Start 09/24/18 at 10:30 Oxycodone HCl (Roxicodone) 15 mg Q4H PRN PO MODERATE PAIN LEVEL 4-6 Last administered on 09/30/18at 15:04; Admin Dose 15 MG; Start 09/24/18 at 10:30 Famotidine (Pepcid) 20 mg DAILY PO Last administered on 09/30/18at 10:08; Admin Dose 20 MG; Start 09/25/18 at 09:00 Lactobacillus Acidophilus/ Rhamnosus (Culturelle) 1 cap BID PO Last administered on 09/30/18at 10:08; Admin Dose 1 CAP; Start 09/24/18 at 21:00 Acetaminophen (Tylenol Tab) 650 mg Q4H PRN PO MILD PAIN(1-3)OR ELEVATED TEMP; Start 09/24/18 at 19:00 Docusate Sodium (Colace) 200 mg BID PRN PO CONSTIPATION; Start 09/25/18 at 14:30 Albuterol (Ventolin Hfa) 2 puff Q4H RESP THERAPY PRN INH SHORTNESS OF BREATH Last administered on 09/30/18at 08:03; Admin Dose 2 PUFF; Start 09/25/18 at 17:00 Bisacodyl (Dulcolax) 10 mg DAILY PRN PO CONSTIPATION Last administered on 09/26/18 15:25; Admin Dose 10 MG; Start 09/26/18 at 15:00 Bisacodyl (Dulcolax Supp) 10 mg DAILY PRN OR CONSTIPATION; Start 09/26/18 at 1 5:00 Hydromorphone HCl (Dilaudid) 1 mg Q6 PRN IV SEVERE PAIN LEVEL 7-10 Last administered on 09/30/18 13:09; Admin Dose 1 MG; Start 09/26/18 at 15:30 Enoxaparin Sodium (Lovenox) 40 mg DAILY SC Last administered on 09/30/18 10:16; Admin Dose 40 MG; Start 09/28/18 at 09:00 Prednisone (Prednisone) 60 mg DAILY PO Last administered on 09/30/18 10:08; Admin Dose 60 MG; Start 09/28/18 at 21:30 Azithromycin (Zithromax) 250 mg DAILY@2130 PO Last administered on 09/29/18 20:36; Admin Dose 250 MG; Start 09/28/18 at 21:30; Stop 09/30/18 at 23:00 Phenol (Cepastat Lozenge) 1 lozenge Q2H PRN MT soar throat. Last administered on 09/30/18 10:09; Admin Dose 1 LOZENGE; Start 09/30/18 at 10:00 MITUL RUBALCAVA MD Sep 30, 2018 17:51
[2018-09-30 19:39] VITALS: BP 140/68; PULSE 60; RESP 16
[2018-09-30] MEDS: AZITHROMYCIN 250 MG TAB PO SCH (20:56)
[2018-10-01] MEDS: HYDROmorphONE 1 MG/ML SYG IV PRN ×4 (01:05→19:44)
[2018-10-01] MEDS: oxyCODONE 15 MG TAB PO PRN ×4 (02:43→22:01)
[2018-10-01] MEDS: CEPASTAT LOZENGE MT PRN (02:43)
[2018-10-01 08:23] VITALS: BP 128/55; PULSE 89; RESP 18
[2018-10-01] MEDS: FAMOTIDINE 20 MG TAB PO SCH (08:32)
[2018-10-01] MEDS: predniSONE 20 MG TAB PO SCH (08:32)
[2018-10-01] MEDS: LACTOBACILLUS RHAMNOSUS CAP PO SCH ×2 (08:32→21:09)
[2018-10-01] MEDS: SERTRALINE 50 MG TAB PO SCH (08:34)
[2018-10-01] MEDS: ENOXAPARIN 40 MG/0.4 ML SYG SC SCH (08:34)
--- NOTE | 2018-10-01 10:36 | PN ---
Date/Time of Note Date/Time of Note DATE: 10/01/18 TIME: 10:35 Assessment/Plan VTE Prophylaxis Risk score (from Nsg)>0 risk: 3 SCD applied (from Nsg): Yes Pharmacological prophylaxis: LMWH Lines/Catheters IV Catheter Type (from Nrsg): Saline Lock Urinary Cath still in place: No Assessment/Plan Hospital Course SUBJECTIVE: Complains of RUE that is not well controlled. Complains of a sore throat and productive cough. Complains of insomnia. OBJECTIVE: Physical Exam General: Adequately build 53 year-old male lying in bed in no apparent distress. HEENT: Normocephalic, atraumatic. Eyes: Anicteric sclerae, conjunctivae clear. ENT: Nasal septum midline, oral mucosa moist. Neck supple, no JVD noticed. Respiratory: Bilaterally diminished breath sounds. No use of accessory muscles of respiration. Bilateral expiratory wheezing. Cardiovascular: S1, S2 heard. No murmurs or gallops. Abdomen: Soft, nontender, and nondistended. Bowel sounds positive in all 4 quadrants. Genitourinary: Deferred. Extremities: No cyanosis, no clubbing, no edema. Right below-knee amputation. Right upper extremity splint in place. Able to move fingers of the right hand. Neurologic: Cranial nerves II through XII grossly intact. The patient is awake, alert, and oriented. Skin: Normal skin turgor. No skin rashes. Labs & Vitals per chart ASSESSMENT & PLAN 53-year-old male with comorbidities including hepatitis C, iron deficiency, depression, wheelchair-bound secondary to right below knee amputation, and recent hospitalization for community acquired pneumonia. The patient had a mechanical fall with impact to the right upper extremity with resultant right olecranon fracture, who will be admitted to inpatient setting for further treatment and evaluation. 1. Right olecranon fracture. -Status post open reduction and internal fixation with primary repair of triceps tendon on 09/23/2018. -Continue PT/OT. 2. History of hepatitis C with underlying cirrhosis. -Compensated. 3. Depression. -Continue SSRI. 4. Testicular pain. -Testicular ultrasound showing left-sided varicocele. -Status post evaluation by urology. 5. Normocytic anemia. -Monitor. 6. Fluids, electrolytes, and nutrition. -Regular diet. 7. DVT prophylaxis. -Subcutaneous Lovenox. 8. Plan. -Continue PT OT. -Await placement. The patient was seen in collaboration with Dr. Hernandez. Result Diagram: 09/28/1843509/28/18435 Exam/Review of Systems Exam Vitals Vital Signs Date Temp Pulse Resp B/P (MAP) Pulse Ox O2 O2 Flow FiO2 Time Delivery Rate 10/01/18 98.2 89 18 128/55 95 Room Air 08:23 (79) Intake and Output 09/30/18 09/30/18 10/01/18 1515:00 23:00 07:00 IntakeIntake Total 800 ml OutputOutput Total 600 ml BalanceBalance 200 ml Medications Medication Current Medications IV Flush (NS 3 ml) 3 ml PER PROTOCOL IV ; Start 09/23/18 at 12:00 Ondansetron HCl (Zofran Inj) 4 mg Q6H PRN IV NAUSEA/VOMITING; Start 09/23/18 at 12:00 Sertraline HCl (Zoloft) 25 mg DAILY PO Last administered on 10/01/18at 08:34; Admin Dose 25 MG; Start 09/24/18 at 09:00 Oxycodone HCl (Roxicodone) 5 mg Q4H PRN PO MODERATE PAIN LEVEL 4-6; Start 09/24/18 at 10:30 Oxycodone HCl (Roxicodone) 10 mg Q4H PRN PO MODERATE PAIN LEVEL 4-6; Start 09/24/18 at 10:30 Oxycodone HCl (Roxicodone) 15 mg Q4H PRN PO MODERATE PAIN LEVEL 4-6 Last administered on 10/01/18at 08:32; Admin Dose 15 MG; Start 09/24/18 at 10:30 Famotidine (Pepcid) 20 mg DAILY PO Last administered on 10/01/18at 08:32; Admin Dose 20 MG; Start 09/25/18 at 09:00 Lactobacillus Acidophilus/ Rhamnosus (Culturelle) 1 cap BID PO Last administered on 10/01/18at 08:32; Admin Dose 1 CAP; Start 09/24/18 at 21:00 Acetaminophen (Tylenol Tab) 650 mg Q4H PRN PO MILD PAIN(1-3)OR ELEVATED TEMP; Start 09/24/18 at 19:00 Docusate Sodium (Colace) 200 mg BID PRN PO CONSTIPATION; Start 09/25/18 at 14:30 Albuterol (Ventolin Hfa) 2 puff Q4H RESP THERAPY PRN INH SHORTNESS OF BREATH Last administered on 09/30/18 22:10; Admin Dose 2 PUFF; Start 09/25/18 at 17:00 Bisacodyl (Dulcolax) 10 mg DAILY PRN PO CONSTIPATION Last administered on 09/26/18 15:25; Admin Dose 10 MG; Start 09/26/18 at 15:00 Bisacodyl (Dulcolax Supp) 10 mg DAILY PRN CO CONSTIPATION; Start 09/26/18 at 15:00 Hydromorphone HCl (Dilaudid) 1 mg Q6 PRN IV SEVERE PAIN LEVEL 7-10 Last administered on 10/01/18 06:43; Admin Dose 1 MG; Start 09/26/18 at 15:30 Enoxaparin Sodium (Lovenox) 40 mg DAILY SC Last administered on 10/01/18 08:34; Admin Dose 40 MG; Start 09/28/18 at 09:00 Prednisone (Prednisone) 60 mg DAILY PO Last administered on 10/01/18 08:32; Admin Dose 60 MG; Start 09/28/18 at 21:30; Stop 10/02/18 at 23:00 Phenol (Cepastat Lozenge) 1 lozenge Q2H PRN MT soar throat. Last administered on 10/01/18 02:43; Admin Dose 1 LOZENGE; Start 09/30/18 at 10:00 DEZ DUNN NP Oct 01, 2018 10:36
[2018-10-01] MEDS ORDERED: GUAIFENESIN 20 MG/ML 5ML CUP PO PRN (11:30)
[2018-10-01 15:09] VITALS: BP 145/73; PULSE 76; RESP 18
[2018-10-01 19:19] VITALS: BP 154/88; PULSE 87; RESP 16
[2018-10-01] MEDS ORDERED: ZOLPIDEM 5 MG TAB PO PRN (21:00)
[2018-10-02] MEDS: HYDROmorphONE 1 MG/ML SYG IV PRN ×4 (01:30→13:51)
[2018-10-02 01:36] VITALS: BP 148/78; PULSE 64; RESP 18
[2018-10-02] MEDS: oxyCODONE 15 MG TAB PO PRN ×3 (02:53→12:35)
[2018-10-02] MEDS: CEPASTAT LOZENGE MT PRN ×3 (05:52→08:38)
[2018-10-02 07:48] VITALS: BP 139/69; PULSE 61; RESP 18
[2018-10-02] MEDS: SERTRALINE 50 MG TAB PO SCH (08:38)
[2018-10-02] MEDS: FAMOTIDINE 20 MG TAB PO SCH (08:39)
[2018-10-02] MEDS: predniSONE 20 MG TAB PO SCH (08:39)
[2018-10-02] MEDS: LACTOBACILLUS RHAMNOSUS CAP PO SCH (08:39)
[2018-10-02] MEDS: ENOXAPARIN 40 MG/0.4 ML SYG SC SCH (08:42)
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
[2018-10-02] MEDS ORDERED: MAGNESIUM SULFATE 2 GM/50 ML 50 ML IVPB ONE (12:30)
[2018-10-02 14:18] VITALS: BP 140/78; PULSE 75; RESP 18
== END 2018-10-02 15:00 | DRG 502 ==
LOC: E/R 07:24 → MS1 11:28
PROVIDERS: ADMIT Internal Medicine; ATTEND Internal Medicine
PROC: 0LQ30ZZ Repair Right Upper Arm Tendon, Open Approach (ICD-10-PCS; 2018-09-23)
PROC: 0PSK04Z Reposition Right Ulna with Internal Fixation Device, Open Approach (ICD-10-PCS; principal; 2018-09-23 16:00)
DX: S52.021A Displaced fracture of olecranon process without intraarticular extension of right ulna, initial encounter for closed fracture (principal); F32.9 Major depressive disorder, single episode, unspecified; N50.819 Testicular pain, unspecified; B19.20 Unspecified viral hepatitis C without hepatic coma; K74.69 Other cirrhosis of liver; M67.823 Other specified disorders of tendon, right elbow; R53.81 Other malaise; R05 Cough; V00.148A Other scooter (nonmotorized) accident, initial encounter; D64.9 Anemia, unspecified; Z99.3 Dependence on wheelchair; Z89.511 Acquired absence of right leg below knee
CPT/HCPCS: 71045; 73070; 73200; 76870; 80048; 80053; 83036; 83735; 84100; 84443; 84484; 85025; 85610; 85730; 93005; 96372; 97110; 97161; 97165; 97530; 97535; C1713; J0690; J1100; J1170; J1200; J1650; J2250; J2405; J2710; J2765; J2795; J2930; J3475; J7030; J7512

== ENCOUNTER → 2018-10-19 | Outpatient (CLI) | payer OTHER ==
[~2018-10-19] MED LIST changes: -ALBU2.5V3 NEB; -AMOX1TAB10 PO; -DICL1KIT14 TP; -DOCU-144 PO; +ENOX30DI2 SC; -FER325 PO; -FOLI-49 PO; -FURO-110 PO; -HYDR-3601 PO; -LACTINEX PO; -MED4DP PO; -METO-429 PO; -NAPR-688 PO; -NEBU-27 MC; -SPIR50TA PO
--- NOTE | 2018-10-19 16:13 | CONS ---
Consult Date/Type/Reason Admit Date/Time Initial Consult Date Date/Time of Note DATE: 10/19/18 TIME: 16:09 Subjective Date of surgery: 09/23/2018 Procedure: Open reduction internal fixation right olecranon fracture This is a 53-year-old male with history of right BKA approximately 1 year ago who is 4 weeks status post ORIF right olecranon fracture. He is currently at a SNF. States pain is much improved. Has no complaints. Says his range of motion continues to improve. He has remained nonweightbearing as instructed. Denies any change in his numbness and tingling which was present prior to his right elbow injury. Objective Vitals Weight: 209 pounds Height: 6 foot Temperature: 90.4 Heart Rate: 95 Blood Pressure: 120/80 Respiratory Rate: 10 Exam General: Awake, alert, in no acute distress, pleasant and cooperative Heart: regular rhythm Lungs: breathing comfortably, no tachypnea or dyspnea MUSCULOSKELETAL: Right upper extremity: Incision is well-healed. Nylon sutures remain in place. There is no erythema. Range of motion of the elbow is 5-130 degrees. He has full supination and pronation. Sensation intact to light touch in a median, ulnar, radial, and axillary distribution. Motor is intact in a median, ulnar, radial, anterior interosseous, and posterior interosseous nerve distribution. Radial and ulnar artery are +2. Wrist extension and flexion are intact. Compartments are soft. Results/Medications Home Meds Active Scripts Enoxaparin Sodium* (Enoxaparin Sodium*) 30 Mg/0.3 Ml Syringe, 30 MG SC DAILY for 7 Days Prov:MITUL RUBALCAVA MD 09/25/18 Reported Medications Sertraline Hcl* (Sertraline Hcl*) 25 Mg Tablet, 25 MG PO DAILY, #30 TAB 09/18/18 Imaging 3 views of the left elbow were obtained in clinic and personally reviewed. Shows reduced olecranon fracture status post ORIF. No hardware complications. No loss of reduction. Assessment/Plan Hospital Course (Demo Recall) 53-year-old male 4 weeks status post ORIF right olecranon fracture. This time he is doing very well he nearly has full range of motion. He is only 5 degrees short of full extension which she may gain over the next several weeks. At this time it is too early for him to weight-bear especially as he uses this arm for transfers. He needs to continue physical therapy and occupational therapy at the SNF and when discharged from there. Like to see him back in 4 weeks with 3 views the right elbow. If everything looks good may progress to partial weightbearing. Likely not allow full weightbearing until 12 weeks. LEATHA ANDRE MD Oct 19, 2018 16:13
--- NOTE | 2018-10-20 18:02 | RADRPT ---
PROCEDURE: XR right elbow. CLINICAL INDICATION: Right elbow pain. TECHNIQUE: Three views. Frontal, lateral, and oblique. COMPARISON: Intraoperative imaging of the right elbow dated 09/23/2018. FINDINGS: Images once again demonstrate open reduction and internal fixation of the olecranon with a posterior plate and multiple screws. Alignment is satisfactory. There is no new fracture or dislocation. Articu lar surfaces are otherwise intact. There is fluid in the elbow joint. There is no lytic or blastic lesion. IMPRESSION: 1. Satisfactory postoperative images of the right elbow. RPTAT: QQ .Aquilino Manzanares MD, MD Date Time Electronically viewed and signed by .Aquilino Manzanares MD, on 10/20/2018 18:02 .R/
== END | disposition home or self-care (01) ==
LOC: HKI 14:29
PROVIDERS: ATTEND Orthopaedic Surgery Adult Reconstructive Orthopaedic Surgery
DX: S52.021D Displaced fracture of olecranon process without intraarticular extension of right ulna, subsequent encounter for closed fracture with routine healing (principal); X58.XXXD Exposure to other specified factors, subsequent encounter; Z96.651 Presence of right artificial knee joint

== ENCOUNTER → 2018-11-15 | Outpatient (CLI) | payer OTHER ==
--- NOTE | 2018-11-15 14:40 | CONS ---
Consult Date/Type/Reason Admit Date/Time Initial Consult Date Date/Time of Note DATE: 11/15/18 TIME: 14:37 Subjective Date of surgery: 09/23/2018 Procedure: Open reduction internal fixation right olecranon fracture This is a 53-year-old male with history of right BKA approximately 1 year ago who is 8 weeks status post ORIF right olecranon fracture. He is currently at a SNF. In the interim he did receive a prosthesis for his right BKA. He has no pain in the elbow. He has been partially weightbearing. Has no complaints. Says his range of motion continues to improve. Denies any change in his numbness and tingling which was present prior to his right elbow injury. Objective Vitals Weight: 195 pounds Height: 6 foot Temperature: 98.8 Heart Rate: 101 Blood Pressure: 120/80 Respiratory Rate: 18 Exam General: Awake, alert, in no acute distress, pleasant and cooperative Heart: regular rhythm Lungs: breathing comfortably, no tachypnea or dyspnea MUSCULOSKELETAL: Right upper extremity: Incision is well-healed. here is no erythema. Range of motion of the elbow is 0-140 degrees. He has full supination and pronation. Sensation intact to light touch in a median, ulnar, radial, and axillary distribution. Motor is intact in a median, ulnar, radial, anterior interosseous, and posterior interosseous nerve distribution. Radial and ulnar artery are +2. Wrist extension and flexion are intact. Compartments are soft. Results/Medications Home Meds Active Scripts Enoxaparin Sodium* (Enoxaparin Sodium*) 30 Mg/0.3 Ml Syringe, 30 MG SC DAILY for 7 Days Prov:MITUL RUBALCAVA MD 09/25/18 Reported Medications Sertraline Hcl* (Sertraline Hcl*) 25 Mg Tablet, 25 MG PO DAILY, #30 TAB 09/18/18 Imaging 3 views of the right elbow were personally reviewed by myself today. Demonstrate right olecranon fracture status post open reduction internal fixation with plates and screws. The fracture is healing. The reduction is maintained. The hardware is intact with no signs of loosening. No acute complication. Assessment/Plan Hospital Course (Demo Recall) 53-year-old male approximately 8 weeks status post ORIF right olecranon fracture. He is doing very well. At this time I like him to continue partially weightbearing 50% for the right upper extremity. I like him to continue with range of motion exercises to prevent stiffness. I would like to see him back in 4 weeks with new 3v x-rays of the elbow. If everything looks good at that time we will likely progress the patient to weight-bear as tolerated. LEATHA ANDRE MD November 15, 2018 14:40
== END | disposition home or self-care (01) ==
LOC: HKI 13:46
PROVIDERS: ATTEND Orthopaedic Surgery Adult Reconstructive Orthopaedic Surgery
DX: S52.021D Displaced fracture of olecranon process without intraarticular extension of right ulna, subsequent encounter for closed fracture with routine healing (principal); X58.XXXD Exposure to other specified factors, subsequent encounter; Z89.511 Acquired absence of right leg below knee
CPT/HCPCS: G0463

== ENCOUNTER → 2018-12-13 | Outpatient (CLI) | payer OTHER ==
--- NOTE | 2018-12-13 18:24 | CONS ---
Consult Date/Type/Reason Admit Date/Time Initial Consult Date Date/Time of Note DATE: 12/13/18 TIME: 18:18 Subjective Date of surgery: 09/23/2018 Procedure: Open reduction internal fixation right olecranon fracture This is a 53-year-old male with history of right BKA approximately 1 year ago who is 12 weeks status post ORIF right olecranon fracture. He is currently at a SNF. In the interim he did receive a prosthesis for his right BKA. He has no pain in the elbow except when bearing significant weight on it while using the walker. He has been fully weightbearing. Has no complaints. Denies any change in his numbness and tingling which was present prior to his right elbow injury. Objective Exam General: Awake, alert, in no acute distress, pleasant and cooperative Heart: regular rhythm Lungs: breathing comfortably, no tachypnea or dyspnea MUSCULOSKELETAL: Right upper extremity: Incision is well-healed. There is no erythema. Range of motion of the elbow is 0-140 degrees. He has full supination and pronation. Results/Medications Home Meds Active Scripts Enoxaparin Sodium* (Enoxaparin Sodium*) 30 Mg/0.3 Ml Syringe, 30 MG SC DAILY for 7 Days Prov:MITUL RUBALCAVA MD 09/25/18 Reported Medications Sertraline Hcl* (Sertraline Hcl*) 25 Mg Tablet, 25 MG PO DAILY, #30 TAB 09/18/18 Imaging 3 views of the right elbow were personally reviewed by myself today. Demonstrate right olecranon fracture status post open reduction internal fixation with plates and screws. The fracture is healed The reduction is maintained. The hardware is intact with no signs of loosening. No acute complication. Assessment/Plan Hospital Course (Demo Recall) 53-year-old male approximately 12 weeks status post ORIF right olecranon fracture. He is doing very well. Patient can now weight-bear as tolerated to right upper extremity. Follow-up LEATHA ELIAS MD December 13, 2018 18:24
== END | disposition home or self-care (01) ==
LOC: HKI 13:54
PROVIDERS: ATTEND Orthopaedic Surgery Adult Reconstructive Orthopaedic Surgery
DX: S52.021D Displaced fracture of olecranon process without intraarticular extension of right ulna, subsequent encounter for closed fracture with routine healing (principal); X58.XXXD Exposure to other specified factors, subsequent encounter; Z89.511 Acquired absence of right leg below knee